=== PATIENT | male | born 1955 | race Two or more races ===

== ENCOUNTER 2021-01-31 17:24 | Inpatient (IN) | payer MEDICARE ==
[2021-01-31] MEDS ORDERED: HEPARIN SODIUM 1,000 UN/ML (10ML VL) IV ONE (17:39)
[2021-01-31] MEDS ORDERED: ATORVASTATIN 80 MG TAB PO STA (17:39)
[2021-01-31] MEDS ORDERED: ASPIRIN 81 MG PO STA (17:39)
[2021-01-31] MEDS ORDERED: NALOXONE 0.4 MG/ML 1 ML VIAL IV PRN (17:40)
--- NOTE | 2021-01-31 17:43 | ED ---
General Adult HPI - General Chief complaint: Chest Pain Stated complaint: Chest pain Time Seen by Provider: 01/31/21 17:32 Source: patient, RN notes reviewed, old records reviewed Mode of arrival: ambulatory Limitations: no limitations - History of Present Illness Initial comments: 65-year-old male history of tobacco use and diabetes presenting for evaluation of chest pain over the past 24-48 hours. Patient did have a syncopal episode yesterday. He states he was sweating had some nausea and indigestion as well as a chest pressure and pain. He has no previous history of coronary artery disease. He was previously on metformin for diabetes but is currently not taking any medication. He is a current smoker. Pain is somewhat reduced currently but still present. - Related Data Allergies Allergy/AdvReac Type Severity Reaction Status Date / Time No Known Allergies Allergy Verified 01/31/21 17:28 Review of Systems ROS Statement: Those systems with pertinent positive or pertinent negative responses have been documented in the HPI. ROS Other: All systems not noted in ROS Statement are negative. Past Medical History Past Medical History: No Reported History History of Any Multi-Drug Resistant Organisms: None Reported Past Surgical History: Orthopedic Surgery Additional Past Surgical History / Comment(s): DVT Past Psychological History: No Psychological Hx Reported Smoking Status: Current every day smoker Past Alcohol Use History: None Reported Past Drug Use History: Marijuana General Exam Limitations: no limitations General appearance: alert, in no apparent distress Head exam: Present: atraumatic, normocephalic Eye exam: Present: normal appearance, PERRL ENT exam: Present: normal exam Neck exam: Present: normal inspection. Absent: tenderness, meningismus Respiratory exam: Present: normal lung sounds bilaterally. Absent: respiratory distress, wheezes Cardiovascular Exam: Present: normal rhythm, bradycardia GI/Abdominal exam: Present: soft. Absent: distended, tenderness, guarding Extremities exam: Present: pedal edema (trace), other (Chronic venous stasis). Absent: joint swelling Neurological exam: Present: alert, oriented X3, CN II-XII intact. Absent: motor sensory deficit Psychiatric exam: Present: normal affect, normal mood Skin exam: Present: warm, intact, diaphoretic Course Vital Signs 01/31/21 17:25 Temperature 98.2 F Pulse Rate 56 L Respiratory 20 Rate Blood Pressure 129/78 O2 Sat by Pulse 96 Oximetry EKG Findings - EKG Comments: EKG Findings:: EKG: Sinus bradycardia with first-degree AV block ventricular rate of 51 MN interval prolonged to 48, QRS duration 100, QTC 433, there is ST segment elevation in II, III, and F aVF, ST segment depression in aVL as well as V2, V3, V4 Medical Decision Making - Medical Decision Making 65 yo male who had presented with chief complaint of chest pain. EKG showing ST segment elevation in the inferior leads with reciprocal change. The laborer pipelines is activated I discussed case with Dr. Petros duarte for cardiology. The patient will be taken urgently for heart catheterization. He had been given aspirin L ipitor and heparin in the emergency department. Case discussed with Dr. Muniz who will admit. All laboratory testing and imaging is pending. Disposition Clinical Impression: ST elevation myocardial infarction (STEMI) Disposition: ADMITTED IP TO THIS HOSP Condition: Serious Is patient prescribed a controlled substance at d/c from ED?: No Referrals: Arnie Burks MD [Primary Care Provider] - 1-2 days Decision to Admit Reason: Admit from EC Decision Date: 01/31/21 Decision Time: 17:45
[2021-01-31 18:02] LABS: Basophils # (A) 0.1 k/uL (0-0.2); Basophils % (A) 1 %; Eosinophils # (A) 0.4 k/uL (0-0.7); Eosinophils % (A) 2 %; HCT 47.8 % (39.0-53.0); HGB 15.9 gm/dL (13.0-17.5); Lymphocytes # (A) 1.9 k/uL (1.0-4.8); Lymphocytes % (A) 11 %; MCHC 33.3 g/dL (31.0-37.0); MCV 93.1 fL (80.0-100.0); Mean Platelet Volume 8.4; Monocytes % (A) 6 %; Neutrophils # (A) 13.4 k/uL (1.3-7.7); Neutrophils % (A) 79 %; Platelet Count 173 k/uL (150-450); RBC 5.14 m/uL (4.30-5.90); RDW 14.8 % (11.5-15.5)
[2021-01-31] MEDS ORDERED: VERAPAMIL 2.5 MG/ML 2 ML AMP ONE (18:04)
[2021-01-31] MEDS ORDERED: HEPARIN SODIUM 1,000 UN/ML (10ML VL) ONE (18:04)
[2021-01-31] MEDS ORDERED: LIDOCAINE 1% INJ 10MG/ML (20 ML MDV) ONE (18:04)
[2021-01-31] MEDS ORDERED: fentaNYL (PF) 50 MCG/ML 2 ML AMP ONE (18:05)
[2021-01-31 18:12] LABS: Albumin 4.7 g/dL (3.5-5.0); Calcium 10.2 mg/dL (8.4-10.2); INR 1.1 (<1.2); Magnesium 2.2 mg/dL (1.6-2.3); Partial Thromboplastin Time 23.5 sec (22.0-30.0); Potassium 4.5 mmol/L (3.5-5.1); Prothrombin Time 11.2 sec (9.0-12.0); Total Bilirubin 0.7 mg/dL (0.2-1.3); Total Protein 7.8 g/dL (6.3-8.2)
--- NOTE | 2021-01-31 18:12 | XR ---
EXAMINATION TYPE: XR chest 1V portable DATE OF EXAM: 01/31/2021 COMPARISON: NONE HISTORY: Chest pain TECHNIQUE: 2 views FINDINGS: Heart is normal. Lungs are clear of infiltrate. There is no heart failure. There no hilar m asses. Diaphragm is normal. There are chest leads. IMPRESSION: No active cardiopulmonary disease.
[2021-01-31] MEDS ORDERED: IV FLUID CONTINUATION 1,000 ML IV ONE (18:15)
[2021-01-31] MEDS ORDERED: fentaNYL (PF) 50 MCG/ML 2 ML AMP IVP ONE (18:16)
[2021-01-31] MEDS ORDERED: LIDOCAINE 1% INJ 10MG/ML (20 ML MDV) SQ ONE (18:19)
[2021-01-31] MEDS ORDERED: VERAPAMIL SYRINGE (5 MG/10 ML) INTRAARTER ONE (18:21)
[2021-01-31] MEDS ORDERED: TICAGRELOR 90 MG TAB ONE (18:26)
[2021-01-31] MEDS: HEPARIN SODIUM 1,000 UN/ML (10ML VL) IV ONE ×2 (18:27→19:38)
[2021-01-31] MEDS ORDERED: TICAGRELOR 90 MG TAB PO ONE (18:28)
[2021-01-31] MEDS ORDERED: ONDANSETRON 4 MG/2 ML VIAL ONE (18:51)
[2021-01-31] MEDS ORDERED: ONDANSETRON 4 MG/2 ML VIAL IVP ONE (18:54)
[2021-01-31] MEDS ORDERED: NOREPINEPHRINE 4 MG in SODIUM CHLORIDE 0.9% 250 ML IV ONE (18:54)
[2021-01-31] MEDS ORDERED: IOPAMIDOL-370 125ML BTL INJ ONE (19:01)
[2021-01-31] MEDS: MIDAZOLAM 2 MG/2 ML VIAL IVP ONE ×2 (19:10→19:20)
[2021-01-31] MEDS ORDERED: IOPAMIDOL-370 100ML BTL INJ ONE (19:17)
[2021-01-31] MEDS ORDERED: niCARdipine 25 MG/10 ML VIAL ONE (19:24)
[2021-01-31] MEDS ORDERED: niCARdipine Syringe (1,000 mcg/10 mL) INTRACORON ONE (19:25)
[2021-01-31] MEDS ORDERED: NITROGLYCERIN SL TABS 0.4 MG TAB SUBLINGUAL PRN (19:50)
[2021-01-31] MEDS ORDERED: RX INFO: IV CONTRAST WAS GIVEN 1 EACH MISC MISCELLANE PRN (19:50)
[2021-01-31] MEDS ORDERED: MAG HYDROX/AL HYDROX/SIMETH 30 ML CUP PO PRN (19:50)
[2021-01-31] MEDS ORDERED: ZOLPIDEM 5 MG TAB PO PRN (19:50)
[2021-01-31] MEDS ORDERED: ATROPINE SULFATE 0.1 MG/ML 10ML SYRINGE IV PRN (19:50)
[2021-01-31] MEDS ORDERED: SODIUM CHLORIDE 0.9% 1,000 ML IV SCH (20:00)
[2021-01-31 20:09] LABS: Glucose,Whole Blood 288 mg/dL (75-99)
[2021-01-31] MEDS: TICAGRELOR 90 MG TAB PO SCH (21:39)
[2021-01-31] MEDS: ATORVASTATIN 80 MG TAB PO SCH (21:39)
--- NOTE | 2021-01-31 22:42 | CONS ---
CONSULTATION ATTENDING: Dr. Arnie Burks. HISTORY OF PRESENT ILLNESS: Mr. Feliciano is a 65-year-old male with a history of hypertension, diabetes mellitus, history of chronic tobacco use, noncompliance with his medication visit to the physician. Yesterday, had an episode of severe chest discomfort, subsequently had a syncopal episode and had diaphoresis. Today when he had a ride, he came into the hospital. In the emergency room, he was noted to have ST-segment elevation inferiorly with QS pattern and ST-segment depression in V2 and V3 and 1 and aVL. The patient has no prior cardiac history. He denies any prior history of myocardial infarction, angina pectoris or congestive heart failure. He denies any history of peripheral edema. No history of PND or orthopnea. He has a history of smoking cigars as well as alcohol intake once a week. He is medicated and he is not taking anything at this time. He ran out of his metformin. REVIEW OF SYSTEMS: RESPIRATORY: He had dyspnea on exertion. No recent wheezing or cough. GI system: No recent GI bleeding. No peptic ulcer disease. system: No dysuria or hematuria. Nervous system: No stroke or seizure. PHYSICAL EXAMINATION: The patient was examined in the cardiac catheterization laboratory. Heart rate in the 60s. Blood pressure 128/74. HEAD: Normocephalic. Eyes sclerae anicteric. NECK: Good upstroke. No bruit. LUNGS: Clear to auscultation anteriorly. HEART: Regular rate and rhythm S1, S2. No S3. No rub or gallop appreciated. ABDOMEN: Soft, obese, nontender. Positive bowel sounds. No organomegaly. EXTREMITIES: Trace edema with chronic discoloration in venous insufficiency. EKG revealed evidence of acute inferior myocardial infarction with QRS pattern suggestive that the event occurred probably yesterday. IMPRESSION: 1. Acute inferior myocardial infarction. 2. Syncope could be related to ventricular tachycardia. 3. Chronic tobacco use. 4. History of hypertension. 5. History of diabetes mellitus. RECOMMENDATIONS: I recommend proceeding with emergent cardiac catheterization. The procedure as well as the risks and the complications were discussed with the patient who is in full understanding and agreement. Depending on his findings, further recommendations will be made. Thank you for this consult. We will follow with you. MMODL / IJN: [id number] /
--- NOTE | 2021-01-31 22:42 | CC ---
CARDIAC CATHETERIZATION REPORT Mr. Feliciano is a 65-year-old male with known history of chronic tobacco use, hypertension, hyperlipidemia, noncompliance who has not been taking any of his medication, who came in with chest discomfort that started 24 hours ago and associated with a syncopal episode. In the emergency room, upon his presentation, he was found to have evidence of QS pattern in the inferior wall with ST-segment elevation. The patient had persistent discomfort. In view of that, recommendation made regarding cardiac catheterization. The procedure as well as the risks and the complications were discussed with the patient who is in full understanding and agreement. Of note, that after signing the procedure, his troponin came back at 109. PROCEDURE DETAILS: Patient was brought to the casting house laborer. He was prepped and draped in the conventional fashion. He received Benadryl and fentanyl and after achieving moderate conscious sedated state, using Xylocaine anesthesia, Seldinger technique, 6-Angolan sheath was introduced in the right radial artery. Selective right and left coronary angiography was performed using 6-Angolan FR4 guiding catheter. After that, that guiding catheter was removed because of poor backup and exchanged to a 6-Angolan 0.75 AL guiding catheter. After cannulating the ostium of the right coronary artery, images were obtained that revealed a total occlusion of the right coronary artery at the ostium. Following that, a 0.014 Whisper J-wire with the help of a straight microcatheter were successful in crossing the total occlusion and positioned the microcatheter distally. The wire was exchanged through the microcatheter to a 0.014 balanced medium weight J-wire. Following that, the microcatheter was removed and a 2.5 x 12 mm Trek balloon was advanced and multiple inflations throughout the vessel were done. Images were obtained and that revealed a large amount of thrombus extending from the ostium all the way to the distal and beyond to the PDA and PLV. Subsequently an export catheter was introduced and one run was done without ability to remove any significant thrombotic material. Following that, a 3.0 x 23 mm Xience Kassandra stent was deployed in the mid segment at 16 atmospheres and proximal to 3.5 x 38 mm Xience Kassandra stent was deployed. It was dilated at 16 atmospheres and proximally 3.5 x 18 mm Xience Kassandra stent was deployed and was dilated at 16 atmospheres. After removing that, a thrombectomy catheter was advanced and 2 runs were performed without ability to remove significant thrombus. There was evidence of no reflow throughout the vessel. Then 3.0 x 20 mm Trek balloon was advanced and multiple inflations throughout the vessel were done and there was still no reflow into the vessel. At that time, because of the inability to restore flow, the wire was removed and the guiding catheter removed. Subsequently, a 5- Angolan 3.5 bend left Vanita catheter was introduced and images of the left coronary system were obtained. Following that, catheter and sheath were removed. Hemostasis was obtained with deployment of a TR band. The patient was returned to his room in stable condition. He was complaining predominantly of back pain. He had episode of 2:1 conduction. He was on a low dose of norepinephrine. He received a total of 6000 units of intravenous heparin. His ACT was followed. He received loading dose of Brilinta as well as intra-arterial verapamil. He has also received intracoronary nicardipine. RESULTS: FINDINGS: 1. LEFT MAIN: This is a large-sized vessel, trifurcating into left circumflex, left anterior descending artery and ramus intermedius. Left main coronary artery has no evidence of significant obstructive disease. 2. LEFT ANTERIOR DESCENDING ARTERY: This is a large-sized vessel reaching toward the apex, tapers down distally, gives rise to a 1st diagonal branch that is totally occluded. The LAD in the mid and proximal segment has mild intimal disease of 10% to 20%. 3. RAMUS INTERMEDIUS: This is a moderately-sized vessel that has a 90% stenosis proximally. 4. LEFT CIRCUMFLEX: This is a nondominant vessel giving rise to a very proximal first obtuse marginal branch that has no evidence of high-grade stenosis. There is mild disease in the AV groove, left circumflex at 10-20%. 5. RIGHT CORONARY ARTERY: This vessel is totally occluded proximally. 6. COLLATERALS: There is collaterals from the left coronary system toward the right PDA and a PLV. HEMODYNAMICS: There was no gradient across the aortic valve. The left ventricle end-diastolic pressure was 20 mmHg. CONCLUSION: 1. Acutely occluded right coronary artery with inability to recanalize the vessel because of no reflow. 2. Totally occluded 1st diagonal branch and critical stenosis in the ramus intermedius. RECOMMENDATIONS: I will continue medical therapy with supportive care. Unfortunately the patient presented late in his myocardial infarction. His troponin was already above 100 suggested the lack of viability in that area. His prognosis remains guarded. I reviewed those findings with the patient. We will follow his rhythm. Duration of procedure is 89 minutes. PRIYA / YESSYN: [id number] / MTDD
[2021-02-01 05:54] LABS: Calcium 9.1 mg/dL (8.4-10.2); Potassium 5.1 mmol/L (3.5-5.1)
[2021-02-01] MEDS ORDERED: FUROSEMIDE 10 MG/ML 2 ML VIAL IV ONE (07:34)
[2021-02-01] MEDS: TICAGRELOR 90 MG TAB PO SCH ×2 (08:38→21:03)
[2021-02-01] MEDS: ASPIRIN 81 MG PO SCH (08:38)
[2021-02-01 10:37] VITALS: BMI 34.9
--- NOTE | 2021-02-01 10:57 | ECHOF ---
Referral Reason:mi MEASUREMENTS -------- HEIGHT: 180.3 cm WEIGHT: 120.2 kg BP: IVSd: 1.5 cm (0.6 - 1.1) LVIDd: 4.9 cm (3.9 - 5.3) LVPWd: 1.7 cm (0.6 - 1.1) IVSs: 1.7 cm LVIDs: 4.7 cm LVPWs: 1.3 cm MV EXCURSION: 14.837 mm (> 18.000) MV EF SLOPE: 84 mm/s (70 - 150) EPSS: 1.5 cm MV E Zoltan: 0.55 m/s MV DecT: 250 ms MV A Zoltan: 0.53 m/s MV E/A Ratio: 1.04 AV maxP.47 mmHg AV meanP.71 mmHg RAP: 5.00 mmHg RVSP: 15.28 mmHg FINDINGS -------- This was a technically difficult study with suboptimal views. The left ventricular size is normal. There is moderate concentric left ventricular hypertrophy. O verall left ventricular systolic function is severely impaired with, an EF between 20 - 25 %. The RV was not well visualized. The left atrium was not well visualized. The right atrium was not well visualized. Lumason used The aortic valve was not well visualized. The mitral valve leaflets are mildly thickened. Mild mitral regurgitation is present. The tricuspid valve appears structurally normal. Mild tricuspid regurgitation present. Right vent ricular systolic pressure is normal at < 35 mmHg. There is no pulmonic regurgitation present. The aortic root size is normal. IVC Not well visulized. There is no pericardial effusion. CONCLUSIONS -------- 1. The left ventricular size is normal. 2. There is moderate concentric left ventricular hypertrophy. 3. Overall left ventricular systolic function is severely impaired with, an EF between 20 - 25 %. 4. The mitral valve leaflets are mildly thickened. 5. Mild mitral regurgitation is present. 6. Mild tricuspid regurgitation present. 7. There is no pericardial effusion. HOT TOP LINER: Erin Garrett [facility]
--- NOTE | 2021-02-01 12:42 | P.HPIM ---
History of Present Illness H&P Date: 02/01/21 Chief Complaint: Chest pain HISTORY OF PRESENT ILLNESS This is a 65-year-old male patient of Dr. Arnie Burks with past medical history of hypertension, hyperlipidemia, peripheral vascular disease status post left lower extremity bypass, obstructive sleep apnea status post uvula surgery, diabetes mellitus type II not currently on medication as he stopped taking metformin on his own, active tobacco use. Patient states that he developed chest pain that he thought was acid reflux and he took some medication that did not seem to help. He is up having an episode where he passed out at home and his girlfriend drove him into the hospital for further evaluation. Upon arrival, patient was found to have ST segment elevation in the inferior leads and was taken urgently to the outside laborer. He was found to have an acutely occluded right coronary artery with inability to recanalize the vessel because of no reflow. Totally occluded first diagonal branch and critical stenosis in the ramus intermedius. Recommendations were for medical therapy. Troponins were 109, 79, 63 and 61.2. Initial creatinine 1.59 and repeat of 1.38. AST 425, ALT 122. WBC 17.0. Echocardiogram reveals EF of 20-25%, moderate concentric left ventricular hypertrophy, mild mitral regurgitation, mild tricuspid regurgitation. Patient is seen today in the intensive care unit and he denies having chest pain at the time of evaluation. REVIEW OF SYSTEMS Constitutional: No fever, no chills, no night sweats. No weight change. No weakness, fatigue or lethargy. No daytime sleepiness. EENT: No headache. No blurred vision or double vision, no loss of vision. No loss of Hearing, no ringing in the ears, no dizziness. No nasal drainage or congestion. No epistaxis. No sore throat. Lungs: No shortness of breath, cough, no sputum production. No wheezing. Cardiovascular: Reported chest pain resolved, no lower extremity edema. No palpitations. No paroxysmal nocturnal dyspnea. No orthopnea. No lightheadedness or dizziness. No syncopal episodes. Abdominal: No abdominal pain. No nausea, vomiting. No diarrhea. No constipation. No bloody or tarry stools.. No loss of appetite. Genitourinary: No dysuria, increased frequency, urgency. No urinary retention. Musculoskeletal: No myalgias. No muscle weakness, no gait dysfunction, no frequent falls. No back pain. No neck pain. Integumentary: No wounds, no lesions. No rash or pruritus. No unusual bruising. No change in hair or nails. Neurologic: No aphasia. No facial droop. No change in mentation. No head injury. No headache. No paralysis. No paresthesia. Psychiatric: No depression. No anxiety. No mood swings. Endocrine: Noted abnormal blood sugars. No weight change. No excessive sweating or thirst. No cold intolerance. SOCIAL HISTORY Patient is a smoker of 5 cigars per day for more than 40 years. He drinks 2-3 alcoholic beverages one time per week. He uses marijuana occasionally. He does not utilize nebulizer, CPAP, oxygen, walker, cane. He has been retired from [employer] since 1983. FAMILY HISTORY Father at age 71 from prostate cancer. Mother at age 90 from diabetes complications. Patient does not have any brothers. He has 2 sisters living with no major medical problems. Patient has 2 children with no major medical problems. PHYSICAL EXAMINATION Gen: This is a 65-year-old obese male. He is resting in the ICU, and recliner and appears to be comfortable. No acute distress noted. HEENT: Head is atraumatic, normocephalic. Pupils equal, round. Sclerae is anicteric. NECK: Supple. No JVD. No lymphadenopathy. No thyromegaly. LUNGS: Clear to auscultation. No wheezes or rhonchi. No intercostal retractions. HEART: Regular rate and rhythm. No murmur. ABDOMEN: Soft. Bowel sounds are present. No masses. No tenderness. EXTREMITIES: Trace bilateral pedal edema. No calf tenderness. NEUROLOGICAL: Patient is awake, alert and oriented x3. Cranial nerves 2 through 12 are grossly intact. ASSESSMENT AND PLAN 1. Acute inferior wall myocardial infarction. Patient is status post heart catheterization. Plan is for medical management, continue aspirin 81 mg daily, Lipitor 80 mg at bedtime, Brilinta 90 mg oral twice daily. 2. Syncope prior to arrival. Possibly related to ventricular tachycardia. 3. Hypertension. 4. Hyperlipidemia. Continue atorvastatin 80 mg at bedtime. 5. Diabetes mellitus type 2 noncompliant. NovoLog scale before meals and at bedtime, hemoglobin A1c. 6. Peripheral vascular disease status post bypass past left lower extremity. 7. Tobacco use and dependence. Patient will be admitted to the hospital for a minimum of 2 night stay. DISCHARGE PLAN Home. Impression and plan of care have been directed as dictated by the signing physician. Rachell Lao nurse practitioner acting as scribe for signing physician. Past Medical History Past Medical History: No Reported History, Diabetes Mellitus, Osteoarthritis (OA) History of Any Multi-Drug Resistant Organisms: None Reported Past Surgical History: Orthopedic Surgery Additional Past Surgical History / Comment(s): DVT Past Anesthesia/Blood Transfusion Reactions: No Reported Reaction Past Psychological History: No Psychological Hx Reported Smoking Status: Former smoker Past Alcohol Use History: Occasional Past Drug Use History: Marijuana - Past Family History Mother Additional Family Medical History / Comment(s): states "mom lived to 90" Father Family Medical History: Cancer Additional Family Medical History / Comment(s): states "father of prostate cancer" Medications and Allergies Home Medications Medication Instructions Recorded Confirmed Type Ticagrelor [Brilinta] 90 mg PO BID 30 Days #60 tab 02/01/21 Rx Allergies Allergy/AdvReac Type Severity Reaction Status Date / Time No Known Allergies Allergy Verified 01/31/21 17:49 Physical Exam Vitals: Vital Signs Temp Pulse Pulse Resp BP Pulse Ox 02/01/21 09:00 49 L 16 114/83 96 02/01/21 08:30 47 L 18 96 02/01/21 08:00 48 L 11 L 112/81 97 02/01/21 07:30 49 L 14 96 02/01/21 07:00 48 L 21 113/76 96 02/01/21 06:30 49 L 10 L 113/76 96 02/01/21 06:00 49 L 18 117/81 94 L 02/01/21 05:30 48 L 18 117/81 96 02/01/21 05:00 46 L 28 H 134/81 85 L 02/01/21 04:30 47 L 17 134/81 97 02/01/21 04:00 97.8 F 47 L 14 139/87 96 02/01/21 03:30 46 L 12 139/87 97 02/01/21 03:00 46 L 23 123/82 97 02/01/21 02:30 46 L 12 123/82 96 02/01/21 02:00 45 L 23 127/93 95 02/01/21 01:30 44 L 14 127/93 97 02/01/21 01:00 43 L 10 L 119/74 95 02/01/21 00:30 43 L 13 119/74 88 L 02/01/21 00:00 97.2 F L 43 L 10 L 123/98 96 01/31/21 23:57 44 L 13 123/98 95 01/31/21 23:30 44 L 14 137/85 96 01/31/21 23:00 42 L 12 127/85 96 01/31/21 22:30 42 L 22 127/78 96 01/31/21 22:00 42 L 28 H 132/79 95 01/31/21 21:30 40 L 17 132/76 94 L 01/31/21 21:00 40 L 19 120/79 93 L 01/31/21 20:50 40 L 31 H 120/79 94 L 01/31/21 20:40 40 L 10 L 120/79 96 01/31/21 20:30 98.0 F 38 L 20 115/68 92 L 01/31/21 20:20 38 L 14 115/68 93 L 01/31/21 20:10 38 L 24 94/57 90 L 01/31/21 20:06 38 L 16 01/31/21 17:53 57 L 01/31/21 17:48 50 L 16 123/81 96 01/31/21 17:25 98.2 F 56 L 20 129/78 96 Intake and Output 01/31/21 02/01/21 02/01/21 22:59 06:59 14:59 Intake Total 575 800 40 Output Total 175 750 100 Balance 400 50 -60 Intake: IV 575 600 40 Sodium Chloride 0.9% 1, 225 600 40 000 ml @ 75 mls/hr IV . [id number] [facility] Rx#:[id number] Oral 200 Output: Urine 175 750 100 Other: Voiding Method Urinal Urinal # Voids 1 1 0 Weight 120.3 kg 120.3 kg Results CBC & Chem 7: 01/31/21 17:50 02/01/21 04:16 Labs: Abnormal Lab Results - Last 24 Hours (Table) 01/31/21 01/31/21 01/31/21 Range/Units 17:50 17:50 17:50 WBC 17.0 H (3.8-10.6) k/uL Neutrophils # 13.4 H (1.3-7.7) k/uL Sodium (137-145) mmol/L Chloride 97 L (98-107) mmol/L BUN 35 H (9-20) mg/dL Creatinine 1.59 H (0.66-1.25) mg/dL Glucose 273 H (74-99) mg/dL POC Glucose (mg/dL) (75-99) mg/dL AST 425 H (17-59) U/L ALT 122 H (4-49) U/L Troponin I 109.000 H* (0.000-0.034) ng/mL 01/31/21 01/31/21 02/01/21 Range/Units 20:07 21:08 00:27 WBC (3.8-10.6) k/uL Neutrophils # (1.3-7.7) k/uL Sodium (137-145) mmol/L Chloride (98-107) mmol/L BUN (9-20) mg/dL Creatinine (0.66-1.25) mg/dL Glucose (74-99) mg/dL POC Glucose (mg/dL) 288 H (75-99) mg/dL AST (17-59) U/L ALT (4-49) U/L Troponin I 79.100 H* 63.900 H* (0.000-0.034) ng/mL 02/01/21 02/01/21 Range/Units 04:16 04:16 WBC (3.8-10.6) k/uL Neutrophils # (1.3-7.7) k/uL Sodium 134 L (137-145) mmol/L Chloride (98-107) mmol/L BUN 34 H (9-20) mg/dL Creatinine 1.38 H (0.66-1.25) mg/dL Glucose 287 H (74-99) mg/dL POC Glucose (mg/dL) (75-99) mg/dL AST (17-59) U/L ALT (4-49) U/L Troponin I 61.200 H* (0.000-0.034) ng/mL Thrombosis Risk Factor Assmnt - Choose All That Apply Any of the Below Risk Factors Present?: Yes Each Factor Represents 1 point: Acute IA, Medical pt on bed rest, Obesity (BMI >25), Varicose veins Other Risk Factors: Yes Each Risk Factor Represents 2 Points: Age 61-74 years Each Risk Factor Represents 3 Points: History of DVT/PE Thrombosis Risk Factor Assessment Total Risk Factor Score: 9 Thrombosis Risk Factor Assessment Level: High Risk
[2021-02-01 12:56] LABS: Chol/HDL Ratio 7.68; LDL Cholesterol,Calculated 137.2 mg/dL (0.0-131.0); VLDL Calculation 29.8 mg/dL (5.00-40.00)
[2021-02-01 14:13] LABS: Hemoglobin A1C 9.5 % (4.0-6.0)
--- NOTE | 2021-02-01 14:38 | P.PN ---
Subjective This is a 65-year-old male with a history of hypertension, type 2 diabetes, chronic tobacco dependence, noncompliance with medication. 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 Patient presented to the emergency department 65 with chest discomfort. EKG revealed ST segment elevation inferiorly with QS pattern and ST segment depression in V2 and V3 and I and aVL. Patient underwent cardiac catheterization with Dr. Morrell which revealed acutely occluded RCA with inability recanalize because of no reflow. Totally occluded first diagonal branch and critical stenosis in the ramus intermedius. It was recommended to continue medical therapy. Unfortunately the patient presented late in his [place]. His troponin was 109 and down trended to 61. Patient seen and examined at bedside, no acute distress. Sitting up at the edge of the bed. Telemetry reviewed and reveals third degree AV block. Continues to have some chest pain, also some mild shortness of breath. BP 130/80, heart rate 49, afebrile, maintaining oxygen saturation is 95% on room air. Laboratory data reviewed, sodium 134, potassium 51, serum creatinine 1.3, BUN 34, triglycerides 1.9, cholesterol 92, LDL 137, HDL 25. He is maintained on aspirin, statin, IV Lasix 20mg x 1, Brilinta 90mg BID. GENERAL: In no acute distress. NECK: Supple without JVD or thyromegaly. LUNGS: Breath sounds clear to auscultation bilaterally. Respiration equal and unlabored. No wheezes, rales or rhonchi. HEART: Regular rate and rhythm without murmurs, rubs or gallops. S1 and S2 heard. EXTREMITIES: Normal range of motion, no edema. Chronic discoloration bilateral lower extremities. No clubbing or cyanosis. Peripheral pulses intact. ASSESSMENT STEMI Type 2 Diabetes Hypertension Chronic nicotine dependence PLAN -Echocardiogram ordered -Continue aspirin 81mg daily, Brilinta, atorvastatin 80mg -Continue cardiac telemetry -Further recommendations to follow Nurse Practitioner note has been reviewed, I agree with a documented findings and plan of care. Patient was seen and examined. Objective - Vital Signs Vital signs: Vital Signs Temp 97.8 F 02/01/21 04:00 Pulse 49 L 02/01/21 11:00 Resp 15 02/01/21 11:00 BP 134/80 02/01/21 11:00 Pulse Ox 95 02/01/21 11:00 Intake & Output 01/31/21 02/01/2102/01/21 18:59 06:59 18:59 Intake Total 330 1045 40 Output Total 925 450 Balance 330 120 -410 Weight 120.3 kg 120.3 kg 120.3 kg Intake: IV 330 845 40 Sodium Chloride 0.9% 1, 825 40 000 ml @ 75 mls/hr IV . [id number] [facility] Rx#:[id number] Oral 200 Output: Urine 925 450 Other: Voiding Method Urinal Urinal # Voids 1 0 - Labs CBC & Chem 7: 01/31/21 17:50 02/01/21 04:16 Labs: Abnormal Lab Results - Last 24 Hours (Table) 01/31/21 01/31/21 01/31/21 Range/Units 17:50 17:50 17:50 WBC 17.0 H (3.8-10.6) k/uL Neutrophils # 13.4 H (1.3-7.7) k/uL Sodium (137-145) mmol/L Chloride 97 L (98-107) mmol/L BUN 35 H (9-20) mg/dL Creatinine 1.59 H (0.66-1.25) mg/dL Glucose 273 H (74-99) mg/dL POC Glucose (mg/dL) (75-99) mg/dL Hemoglobin A1c (4.0-6.0) % AST 425 H (17-59) U/L ALT 122 H (4-49) U/L Troponin I 109.000 H* (0.000-0.034) ng/mL LDL Cholesterol, Calc (0.0-131.0) mg/dL HDL Cholesterol (40.0-60.0) mg/dL 01/31/21 01/31/21 01/31/21 Range/Units 20:07 21:08 21:08 WBC (3.8-10.6) k/uL Neutrophils # (1.3-7.7) k/uL Sodium (137-145) mmol/L Chloride (98-107) mmol/L BUN (9-20) mg/dL Creatinine (0.66-1.25) mg/dL Glucose (74-99) mg/dL POC Glucose (mg/dL) 288 H (75-99) mg/dL Hemoglobin A1c (4.0-6.0) % AST (17-59) U/L ALT (4-49) U/L Troponin I 79.100 H* (0.000-0.034) ng/mL LDL Cholesterol, Calc 137.2 H (0.0-131.0) mg/dL HDL Cholesterol 25.0 L (40.0-60.0) mg/dL 01/31/21 02/01/21 02/01/21 Range/Units 21:08 00:27 04:16 WBC (3.8-10.6) k/uL Neutrophils # (1.3-7.7) k/uL Sodium (137-145) mmol/L Chloride (98-107) mmol/L BUN (9-20) mg/dL Creatinine (0.66-1.25) mg/dL Glucose (74-99) mg/dL POC Glucose (mg/dL) (75-99) mg/dL Hemoglobin A1c 9.5 H (4.0-6.0) % AST (17-59) U/L ALT (4-49) U/L Troponin I 63.900 H* 61.200 H* (0.000-0.034) ng/mL LDL Cholesterol, Calc (0.0-131.0) mg/dL HDL Cholesterol (40.0-60.0) mg/dL 02/01/21 Range/Units 04:16 WBC (3.8-10.6) k/uL Neutrophils # (1.3-7.7) k/uL Sodium 134 L (137-145) mmol/L Chloride (98-107) mmol/L BUN 34 H (9-20) mg/dL Creatinine 1.38 H (0.66-1.25) mg/dL Glucose 287 H (74-99) mg/dL POC Glucose (mg/dL) (75-99) mg/dL Hemoglobin A1c (4.0-6.0) % AST (17-59) U/L ALT (4-49) U/L Troponin I (0.000-0.034) ng/mL LDL Cholesterol, Calc (0.0-131.0) mg/dL HDL Cholesterol (40.0-60.0) mg/dL
[2021-02-01] MEDS ORDERED: FUROSEMIDE 10 MG/ML 2 ML VIAL IV STA (15:10)
[2021-02-01] MEDS: INSULIN ASPART (NovoLOG) 100 UNIT/ML VIAL SQ SCH ×3 (16:07→21:03)
[2021-02-01 18:20] LABS: Glucose,Whole Blood 365 mg/dL (75-99)
[2021-02-01 20:49] LABS: Glucose,Whole Blood 298 mg/dL (75-99)
[2021-02-01] MEDS: ATORVASTATIN 80 MG TAB PO SCH (21:02)
[2021-02-02 04:41] LABS: Calcium 9.1 mg/dL (8.4-10.2)
[2021-02-02 04:45] LABS: Potassium 5.9 mmol/L (3.5-5.1)
[2021-02-02 06:23] LABS: Glucose,Whole Blood 194 mg/dL (75-99)
[2021-02-02] MEDS ORDERED: EPINEPHrine 10 ML SYRINGE (0.1 MG/ML) ONE (06:23)
[2021-02-02] MEDS ORDERED: EPINEPHrine 10 ML SYRINGE (0.1 MG/ML) IV STA (06:25)
[2021-02-02] MEDS ORDERED: MAGNESIUM SULFATE-D5W PMX 1 GM in DEXTROSE/WATER 1 100ML.BAG IVPB ONE (06:30)
[2021-02-02] MEDS: DOPamine DRIP 800 MG in WATER FOR INJECTION 1 250ML.BAG IV SCH (06:34)
[2021-02-02] MEDS ORDERED: SODIUM BICARB 8.4% 50 ML SYR (1 MEQ/ML) IV STA (06:44)
[2021-02-02] MEDS: INSULIN ASPART (NovoLOG) 100 UNIT/ML VIAL SQ SCH ×6 (07:00→20:45)
[2021-02-02 08:53] LABS: HCT 44.3 % (39.0-53.0); HGB 14.6 gm/dL (13.0-17.5); MCH 31.2 pg (25.0-35.0); MCV 94.5 fL (80.0-100.0); Mean Platelet Volume 8.7; Platelet Count 165 k/uL (150-450); RBC 4.69 m/uL (4.30-5.90); RDW 14.9 % (11.5-15.5); WBC 20.5 k/uL (3.8-10.6)
[2021-02-02] MEDS: FUROSEMIDE 10 MG/ML 4 ML VIAL IV SCH ×2 (08:57→20:45)
[2021-02-02] MEDS ORDERED: FUROSEMIDE 10 MG/ML 4 ML VIAL IV SCH (09:00)
[2021-02-02 09:08] LABS: Calcium 9.1 mg/dL (8.4-10.2); Magnesium 2.4 mg/dL (1.6-2.3)
[2021-02-02] MEDS: ASPIRIN 81 MG PO SCH (09:10)
[2021-02-02] MEDS: TICAGRELOR 90 MG TAB PO SCH ×2 (09:10→20:46)
[2021-02-02] MEDS: LOSARTAN 25 MG TAB PO SCH (09:11)
[2021-02-02 09:19] LABS: Potassium 4.6 mmol/L (3.5-5.1)
[2021-02-02] MEDS ORDERED: LIDOCAINE 1% INJ 10MG/ML (20 ML MDV) ONE (10:25)
[2021-02-02] MEDS ORDERED: IV FLUID CONTINUATION 1,000 ML IV ONE (10:26)
[2021-02-02] MEDS ORDERED: MIDAZOLAM 2 MG/2 ML VIAL IVP ONE (10:53)
[2021-02-02] MEDS ORDERED: LIDOCAINE 1% INJ 10MG/ML (20 ML MDV) SQ ONE (10:53)
--- NOTE | 2021-02-02 11:29 | P.PN ---
Subjective This is a 65-year-old male with a history of hypertension, type 2 diabetes, chronic tobacco dependence, noncompliance with medication. 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 Patient presented to the emergency department 65 with chest discomfort. EKG revealed ST segment elevation inferiorly with QS pattern and ST segment depression in V2 and V3 and I and aVL. Patient underwent cardiac catheterization with Dr. Morrell which revealed acutely occluded RCA with inability recanalize because of no reflow. Totally occluded first diagonal branch and critical stenosis in the ramus intermedius. It was recommended to continue medical therapy. Unfortunately the patient presented late in his [place]. His troponin was 109 and down trended to 61. Patient's course complicated by Third degree AV block and congestive heart failure. Echocardiogram revealed EF 20-25%, moderate concentric ventricular hypertrophy, mild mitral regurgitation, mild tricuspid regurgitation. 02/02/2021: This morning around 6:10am, patient had two episodes of 17 second pauses on the deburr operator. Patient was exertnally paced at 0621 at 60bpm. Patient was given 0.1mg Epi and started dopamine drip at 5mcg. After Epi administration patient had short run of torsades and 1gm of magnesium was started. At 0630, patient was back in his own rhythm in third degree AV block in the 50s. Potassium did come back at 5.9, but hemolyzed. Patient received Patient seen and examined at bedside this morning. Patient does feel warm. He denies chest pain. Continues to be short of breath. BP 136/77, heart rate 60 afebrile, maintaining oxygen saturation is 97% on 2L nasal cannula. Laboratory data reviewed, sodium 134, potassium 4.6, BUN 37, serum creatinine 1.26, magnesium 2.4, WBC 20.5, hemoglobin 14.6, platelets 165 He is maintained on aspirin, statin, IV Lasix 40mg daily, Brilinta 90mg BID. GENERAL: Sitting up in bed. States he is short of breath NECK: Supple without JVD or thyromegaly. LUNGS: Breath sounds clear to auscultation bilaterally. Respiration equal and unlabored. No wheezes, rales or rhonchi. HEART: Regular. S1 and S2 heard. EXTREMITIES: Normal range of motion, no edema. 2+ edema. Chronic discoloration bilateral lower extremities. No clubbing or cyanosis. Peripheral pulses intact. ASSESSMENT STEMI Third Degree AV Block Acute systolic heart failure with reduced ejection fraction EF 20-25% Type 2 Diabetes Hypertension Chronic nicotine dependence PLAN -Plan for temporary transvenous pacemaker today with Dr. Escamilla -Increase IV Lasix to 40mg BID -Losartan 25mg daily -Continue aspirin 81mg daily, Brilinta, atorvastatin 80mg -Continue cardiac telemetry -Further recommendations to follow Nurse Practitioner note has been reviewed, I agree with a documented findings and plan of care. Patient was seen and examined. Objective - Vital Signs Vital signs: Vital Signs Temp 97.8 F 02/02/21 04:00 Pulse 60 02/02/21 08:00 Resp 16 02/02/21 08:00 BP 136/77 02/02/21 08:00 Pulse Ox 97 02/02/21 08:00 Intake & Output 02/01/21 02/02/21 02/02/21 18:59 06:59 18:59 Intake Total 40 100 Output Total 1500 550 0 Balance -1460 -450 0 Weight 120.3 kg 116.4 kg Intake: IV 40 Sodium Chloride 0.9% 1, 40 000 ml @ 75 mls/hr IV . [id number] [facility] Rx#:[id number] Oral 100 Output: Urine 1500 550 0 Other: Voiding Method Urinal Urinal Urinal # Voids 1 - Labs CBC & Chem 7: 02/02/21 08:06 02/02/21 08:06 Labs: Abnormal Lab Results - Last 24 Hours (Table) 01/31/21 01/31/21 02/01/21 Range/Units 21:08 21:08 18:17 WBC (3.8-10.6) k/uL Sodium (137-145) mmol/L Potassium (3.5-5.1) mmol/L Chloride (98-107) mmol/L Carbon Dioxide (22-30) mmol/L BUN (9-20) mg/dL Creatinine (0.66-1.25) mg/dL Glucose (74-99) mg/dL POC Glucose (mg/dL) 365 H (75-99) mg/dL Hemoglobin A1c 9.5 H (4.0-6.0) % Magnesium (1.6-2.3) mg/dL LDL Cholesterol, Calc 137.2 H (0.0-131.0) mg/dL HDL Cholesterol 25.0 L (40.0-60.0) mg/dL 02/01/21 02/02/21 02/02/21 Range/Units 20:47 04:02 06:21 WBC (3.8-10.6) k/uL Sodium 130 L (137-145) mmol/L Potassium 5.9 H (3.5-5.1) mmol/L Chloride 97 L (98-107) mmol/L Carbon Dioxide (22-30) mmol/L BUN 38 H (9-20) mg/dL Creatinine (0.66-1.25) mg/dL Glucose 133 H (74-99) mg/dL POC Glucose (mg/dL) 298 H 194 H (75-99) mg/dL Hemoglobin A1c (4.0-6.0) % Magnesium (1.6-2.3) mg/dL LDL Cholesterol, Calc (0.0-131.0) mg/dL HDL Cholesterol (40.0-60.0) mg/dL 02/02/21 02/02/21 Range/Units 08:06 08:06 WBC 20.5 H (3.8-10.6) k/uL Sodium 134 L (137-145) mmol/L Potassium (3.5-5.1) mmol/L Chloride (98-107) mmol/L Carbon Dioxide 20 L (22-30) mmol/L BUN 37 H (9-20) mg/dL Creatinine 1.26 H (0.66-1.25) mg/dL Glucose 198 H (74-99) mg/dL POC Glucose (mg/dL) (75-99) mg/dL Hemoglobin A1c (4.0-6.0) % Magnesium 2.4 H (1.6-2.3) mg/dL LDL Cholesterol, Calc (0.0-131.0) mg/dL HDL Cholesterol (40.0-60.0) mg/dL
--- NOTE | 2021-02-02 11:36 | P.PN ---
Subjective Progress Note Date: 02/02/21 HISTORY OF PRESENT ILLNESS This is a 65-year-old male patient of Dr. Arnie Burks with past medical history of hypertension, hyperlipidemia, peripheral vascular disease status post left lower extremity bypass, obstructive sleep apnea status post uvula surgery, diabetes mellitus type II not currently on medication as he stopped taking metformin on his own, active tobacco use. Patient states that he developed chest pain that he thought was acid reflux and he took some medication that did not seem to help. He is up having an episode where he passed out at home and his girlfriend drove him into the hospital for further evaluation. Upon arrival, patient was found to have ST segment elevation in the inferior leads and was taken urgently to the slab tripper. He was found to have an acutely occluded right coronary artery with inability to recanalize the vessel because of no reflow. Totally occluded first diagonal branch and critical stenosis in the ramus intermedius. Recommendations were for medical therapy. Troponins were 109, 79, 63 and 61.2. Initial creatinine 1.59 and repeat of 1.38. AST 425, ALT 122. WBC 17.0. Echocardiogram reveals EF of 20-25%, moderate concentric left ventricular hypertrophy, mild mitral regurgitation, mild tricuspid regurgitation. Patient is seen today in the intensive care unit and he denies having chest pain at the time of evaluation. 02/02: The patient is in third-degree heart block and had a +12 seconds. He had transthoracic pacemaker applied and is undergoing temporary pacemaker and will most likely need AICD prior to discharge. Patient has been afebrile, blood pressure 136/77, pulse ox 97% on 2 L nasal cannula. WBC 20.5, hemoglobin 14.6, platelet count 165. Sodium 134, potassium 4.6, chloride 90, CO2 20, BUN 37 creatinine 1.26. Blood sugar 198. Hemoglobin A1c is 9.5. She will be started on scheduled Levemir and NovoLog scheduled with meals along with scale. Ebony boothe educator consult will be added. REVIEW OF SYSTEMS Constitutional: No fever, no chills, no night sweats. No weight change. No weakness, fatigue or lethargy. No daytime sleepiness. EENT: No headache. No blurred vision or double vision, no loss of vision. No loss of Hearing, no ringing in the ears, no dizziness. No nasal drainage or congestion. No epistaxis. No sore throat. Lungs: No shortness of breath, cough, no sputum production. No wheezing. Cardiovascular: Reported chest pain resolved, no lower extremity edema. No palpitations. No paroxysmal nocturnal dyspnea. No orthopnea. No lightheadedness or dizziness. No syncopal episodes. Abdominal: No abdominal pain. No nausea, vomiting. No diarrhea. No constipation. No bloody or tarry stools.. No loss of appetite. Genitourinary: No dysuria, increased frequency, urgency. No urinary retention. Musculoskeletal: No myalgias. No muscle weakness, no gait dysfunction, no frequent falls. No back pain. No neck pain. Integumentary: No wounds, no lesions. No rash or pruritus. No unusual bruisi ng. No change in hair or nails. Neurologic: No aphasia. No facial droop. No change in mentation. No head injury. No headache. No paralysis. No paresthesia. Psychiatric: No depression. No anxiety. No mood swings. Endocrine: Noted abnormal blood sugars. No weight change. No excessive sweating or thirst. No cold intolerance. PHYSICAL EXAMINATION Gen: This is a 65-year-old obese male. He is resting in the ICU, and recliner and appears to be comfortable. No acute distress noted. HEENT: Head is atraumatic, normocephalic. Pupils equal, round. Sclerae is anicteric. NECK: Supple. No JVD. No lymphadenopathy. No thyromegaly. LUNGS: Clear to auscultation. No wheezes or rhonchi. No intercostal retractions. HEART: Regular rate and rhythm. No murmur. ABDOMEN: Soft. Bowel sounds are present. No masses. No tenderness. EXTREMITIES: Trace bilateral pedal edema. No calf tenderness. NEUROLOGICAL: Patient is awake, alert and oriented x3. Cranial nerves 2 through 12 are grossly intact. ASSESSMENT AND PLAN 1. Acute inferior wall myocardial infarction. Patient is status post heart catheterization. Plan is for medical management, continue aspirin 81 mg daily, Lipitor 80 mg at bedtime, Brilinta 90 mg oral twice daily. 2. Syncope prior to arrival. Possibly related to ventricular tachycardia. 3. Severe ischemic cardiomyopathy. 4. Third-degree heart block requiring temporary pacemaker 5. Hypertension. 6. Hyperlipidemia. Continue atorvastatin 80 mg at bedtime. 7. Diabetes mellitus type 2, uncontrolled with hyperglycemia due to noncompliance. The patient on Levemir scheduled daily along with scheduled NovoLog and continue NovoLog scale before meals and at bedtime, hemoglobin A1c 9.5. clinical systems educator. 6. Peripheral vascular disease status post bypass past left lower extremity. 7. Tobacco use and dependence. DISCHARGE PLAN Home. Impression and plan of care have been directed as dictated by the signing physician. Rachell Lao nurse practitioner acting as scribe for signing physi vanita. Objective - Vital Signs Vital signs: Vital Signs Temp 97.8 F 02/02/21 04:00 Pulse 59 L 02/02/21 06:00 Resp 30 H 02/02/21 06:00 BP 115/84 02/02/21 06:00 Pulse Ox 96 02/02/21 06:00 Intake & Output 02/01/21 02/01/21 02/02/21 06:59 18:59 06:59 Intake Total 1045 40 100 Output Total 925 1500 550 Balance 120 -1460 -450 Weight 120.3 kg 120.3 kg 116.4 kg Intake: IV 845 40 Sodium Chloride 0.9% 1, 825 40 000 ml @ 75 mls/hr IV . [id number] [facility] Rx#:[id number] Oral 200 100 Output: Urine 925 1500 550 Other: Voiding Method Urinal Urinal Urinal # Voids 1 1 - Labs CBC & Chem 7: 02/02/21 08:06 02/02/21 08:06 Labs: Abnormal Lab Results - Last 24 Hours (Table) 01/31/21 01/31/21 02/01/21 Range/Units 21:08 21:08 18:17 Sodium (137-145) mmol/L Potassium (3.5-5.1) mmol/L Chloride (98-107) mmol/L BUN (9-20) mg/dL Glucose (74-99) mg/dL POC Glucose (mg/dL) 365 H (75-99) mg/dL Hemoglobin A1c 9.5 H (4.0-6.0) % LDL Cholesterol, Calc 137.2 H (0.0-131.0) mg/dL HDL Cholesterol 25.0 L (40.0-60.0) mg/dL 02/01/21 02/02/21 02/02/21 Range/Units 20:47 04:02 06:21 Sodium 130 L (137-145) mmol/L Potassium 5.9 H (3.5-5.1) mmol/L Chloride 97 L (98-107) mmol/L BUN 38 H (9-20) mg/dL Glucose 133 H (74-99) mg/dL POC Glucose (mg/dL) 298 H 194 H (75-99) mg/dL Hemoglobin A1c (4.0-6.0) % LDL Cholesterol, Calc (0.0-131.0) mg/dL HDL Cholesterol (40.0-60.0) mg/dL
[2021-02-02 11:50] LABS: Glucose,Whole Blood 223 mg/dL (75-99)
[2021-02-02 13:06] LABS: Glucose,Whole Blood 223 mg/dL (75-99)
--- NOTE | 2021-02-02 16:44 | P.PCN ---
Description of Procedure: Procedures performed: Ultrasound-guided right brachial venous access, placement of TVP Procedure performed by: Dr. Escamilla Moderate conscious sedation: Patient received moderate conscious sedation under the direct supervision of myself for 16 minutes Indication: HPI: Patient is a pleasant 65-year-old male with history of coronary artery disease. Patient presented with 24 hrs of chest pain and was found to have inferior ST elevations. He underwent PCI of RCA however with heavy thrombus burden and has residual LANDSCAPE TECHNICIAN of diagonal branch and otherwise mild disease of LAD and circumflex. He was found to have EF 20-25% and 3rd degree heart block. He had significant 17 second complete heart block requiring transcutaneous pacing. He is being evaluated for PPM/AICD however recommendation was to stabilize patient with a TVP. Procedure details: Patient was brought to the catheterization laboratory in a fasting state. [facility] consent was obtained after the risks, benefits and alternatives of the above mentioned procedures were described in detail with the patient. Patient was sterilely prepped and draped in the usual fashion. 1% lidocaine was used to anesthetize the right brachial area. A 6FR sheath was placed in the right brachial vein using ultrasound guidance and modified Seldinger technique. Next a 5 [place] transvenous pacemaker was placed through the sheath and under x-ray guidance was placed into right ventricle. Pacing thresholds were obtained and were deemed adequate. Patient was placed on a backup rate of 40 bpm. The sheath was sutured in place and the TVP was secured. Patient tolerated the procedure well. Patient was transferred back to the post catheterization holding area in stable condition.
[2021-02-02 16:59] LABS: Glucose,Whole Blood 206 mg/dL (75-99)
[2021-02-02 20:33] LABS: Glucose,Whole Blood 150 mg/dL (75-99)
[2021-02-02] MEDS: ATORVASTATIN 80 MG TAB PO SCH (20:46)
[2021-02-03] MEDS: DOPamine DRIP 800 MG in WATER FOR INJECTION 1 250ML.BAG IV SCH ×2 (03:38→18:09)
[2021-02-03 05:20] LABS: Calcium 9.1 mg/dL (8.4-10.2); Magnesium 2.3 mg/dL (1.6-2.3); Potassium 4.2 mmol/L (3.5-5.1)
[2021-02-03] MEDS: INSULIN ASPART (NovoLOG) 100 UNIT/ML VIAL SQ SCH ×7 (07:01→21:05)
[2021-02-03] MEDS: LOSARTAN 25 MG TAB PO SCH (09:01)
[2021-02-03] MEDS: FUROSEMIDE 10 MG/ML 4 ML VIAL IV SCH ×2 (09:01→21:25)
[2021-02-03] MEDS: ASPIRIN 81 MG PO SCH (09:01)
[2021-02-03] MEDS: TICAGRELOR 90 MG TAB PO SCH ×2 (09:01→21:25)
[2021-02-03] MEDS: INSULIN DETEMIR (LEVEMIR) 100 UNIT/ML SYR SQ SCH (09:23)
[2021-02-03 09:25] LABS: Glucose,Whole Blood 194 mg/dL (75-99)
[2021-02-03 11:10] LABS: Glucose,Whole Blood 200 mg/dL (75-99)
--- NOTE | 2021-02-03 11:12 | P.PN ---
Subjective This is a 65-year-old male with a history of hypertension, type 2 diabetes, chronic tobacco dependence, noncompliance with medication. 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 Patient presented to the emergency department 65 with chest discomfort. EKG revealed ST segment elevation inferiorly with QS pattern and ST segment depression in V2 and V3 and I and aVL. Patient underwent cardiac catheterization with Dr. Morrell which revealed acutely occluded RCA with inability recanalize because of no reflow. Totally occluded first diagonal branch and critical stenosis in the ramus intermedius. It was recommended to continue medical therapy. Unfortunately the patient presented late in his [place]. His troponin was 109 and down trended to 61. Patient's course complicated by Third degree AV block and congestive heart failure. Echocardiogram revealed EF 20-25%, moderate concentric ventricular hypertrophy, mild mitral regurgitation, mild tricuspid regurgitation. 02/02/2021: 6:10am, patient had two episodes of 17 second pauses on the wood grainer. Patient was externally paced at 0621 at 60bpm. Patient was given 0.1mg Epi and started dopamine drip at 5mcg. After Epi administration patient had short run of torsades and 1gm of magnesium was started. At 0630, patient was back in his own rhythm in third degree AV block in the 50s. Potassium did come back at 5.9, but hemolyzed. Patient received IV bicarb. Patient underwent TVP with Dr. Escamilla later in the day. 02/03/2021: Patient seen and examined at bedside this morning. Sitting up in bed, no acute distress. He is eating breakfast. TVP in place. Patient is needing to be paced. BP 99/62 , heart rate 47 afebrile, maintaining oxygen saturation is 976% on 2L nasal cannula. Laboratory data reviewed, sodium 133, potassium 4.2, BUN 35, serum creatinine 1.09, magnesium 2.3. He is maintained on aspirin 81mg daily , atorvastatin 80mg daily , IV Lasix 40mg BID, Brilinta 90mg BID, IV Dopamine drip at 7mcg/kg/min. Patient with 3.8L urine output over the past 24 hours. GENERAL: Sitting up in bed. Continues to feel warm with cloth on head, some mild shortness of breath. NECK: Supple without JVD LUNGS: Breath sounds diminished to auscultation bilaterally. Respiration equal and unlabored. No wheezes, rales or rhonchi. HEART: Regular. S1 and S2 heard. TVP in place : Dumont in place with dark yellow urine EXTREMITIES: 2+ edema. Chronic discoloration bilateral lower extremities. No clubbing or cyanosis. Peripheral pulses intact. ASSESSMENT STEMI Third Degree AV Block Status post TVP placement on 02/02 Acute systolic heart failure with reduced ejection fraction EF 20-25% Type 2 Diabetes Hypertension Chronic nicotine dependence PLAN -Plan for PPM/AICD placement with Dr. Jara tomorrow -Patient NPO at midnight -Continue IV Dopamine drip, IV Lasix to 40mg BID, Losartan 25mg daily -Continue aspirin 81mg daily, Brilinta, atorvastatin 80mg -Continue cardiac telemetry -Further recommendations to follow Nurse Practitioner note has been reviewed, I agree with a documented findings and plan of care. Patient was seen and examined. Objective - Vital Signs Vital signs: Vital Signs Temp 98.3 F 02/03/21 04:00 Pulse 67 02/03/21 07:00 Resp 22 02/03/21 07:00 BP 116/87 02/03/21 07:00 Pulse Ox 95 02/03/21 07:00 Intake & Output 02/02/21 02/03/21 02/03/21 18:59 06:59 18:59 Intake Total 340 770.000 Output Total 1774 2034 Balance -1435 -1265.000 Weight 118 kg Intake: IV 340 520 0.9 @ 20 180 260 TVP 0.9 140 260 Intake, IV Titration 250.000 Amount DOPamine DRIP 800 mg In 250.000 Water For Injection 1 250ml.bag @ 5 MCG/KG/MIN 11.278 mls/hr IV .[id number] [facility] Rx#:[id number] Output: Urine 1774 2034 Other: Voiding Method Indwelling Catheter Indwelling Catheter - Labs CBC & Chem 7: 02/02/21 08:06 02/03/21 04:10 Labs: Abnormal Lab Results - Last 24 Hours (Table) 02/02/21 02/02/21 02/02/21 Range/Units 11:48 13:04 16:57 Sodium (137-145) mmol/L Chloride (98-107) mmol/L BUN (9-20) mg/dL Glucose (74-99) mg/dL POC Glucose (mg/dL) 223 H 223 H 206 H (75-99) mg/dL 02/02/21 02/03/21 02/03/21 Range/Units 20:31 04:10 09:23 Sodium 133 L (137-145) mmol/L Chloride 95 L (98-107) mmol/L BUN 35 H (9-20) mg/dL Glucose 107 H (74-99) mg/dL POC Glucose (mg/dL) 150 H 194 H (75-99) mg/dL
--- NOTE | 2021-02-03 12:35 | P.PN ---
Subjective Progress Note Date: 02/03/21 HISTORY OF PRESENT ILLNESS This is a 65-year-old male patient of Dr. Arnie Burks with past medical history of hypertension, hyperlipidemia, peripheral vascular disease status post left lower extremity bypass, obstructive sleep apnea status post uvula surgery, diabetes mellitus type II not currently on medication as he stopped taking metformin on his own, active tobacco use. Patient states that he developed chest pain that he thought was acid reflux and he took some medication that did not seem to help. He is up having an episode where he passed out at home and his girlfriend drove him into the hospital for further evaluation. Upon arrival, patient was found to have ST segment elevation in the inferior leads and was taken urgently to the manager lab. He was found to have an acutely occluded right coronary artery with inability to recanalize the vessel because of no reflow. Totally occluded first diagonal branch and critical stenosis in the ramus intermedius. Recommendations were for medical therapy. Troponins were 109, 79, 63 and 61.2. Initial creatinine 1.59 and repeat of 1.38. AST 425, ALT 122. WBC 17.0. Echocardiogram reveals EF of 20-25%, moderate concentric left ventricular hypertrophy, mild mitral regurgitation, mild tricuspid regurgitation. Patient is seen today in the intensive care unit and he denies having chest pain at the time of evaluation. 02/02: The patient is in third-degree heart block and had a +12 seconds. He had transthoracic pacemaker applied and is undergoing temporary pacemaker and will most likely need AICD prior to discharge. Patient has been afebrile, blood pressure 136/77, pulse ox 97% on 2 L nasal cannula. WBC 20.5, hemoglobin 14.6, platelet count 165. Sodium 134, potassium 4.6, chloride 90, CO2 20, BUN 37 creatinine 1.26. Blood sugar 198. Hemoglobin A1c is 9.5. She will be started on scheduled Levemir and NovoLog scheduled with meals along with scale. Ebony boothe educator consult will be added. 02/03: Patient remains in intensive care unit. He had a temporary transverse venous pacemaker placed yesterday and is scheduled for AICD for tomorrow. Patient is on dopamine drip and IV Lasix. Dumont catheter is in place noted to have hematuria. Patient's significant other is at the bedside. Patient has been afebrile, heart rate in the 40s to 60, blood pressure 133/64, pulse ox 98% on room air. Sodium 133, potassium 4.2, chloride 95, CO2 28, BUN 35 creatinine 1.09. Blood sugars are running between 170s and 206. Patient was started on insulin yesterday and for gentle will be added. REVIEW OF SYSTEMS Constitutional: No fever, no chills, no night sweats. No weight change. No weakness, fatigue or lethargy. No daytime sleepiness. EENT: No headache. No blurred vision or double vision, no loss of vision. No loss of Hearing, no ringing in the ears, no dizziness. No nasal drainage or congestion. No epistaxis. No sore throat. Lungs: No shortness of breath, cough, no sputum production. No wheezing. Cardiovascular: Reported chest pain resolved, no lower extremity edema. No palpitations. No paroxysmal nocturnal dyspnea. No orthopnea. No lightheadedness or dizziness. No syncopal episodes. Abdominal: No abdominal pain. No nausea, vomiting. No diarrhea. No constipation. No bloody or tarry stools.. No loss of appetite. Genitourinary: No dysuria, increased frequency, urgency. No urinary retention. Musculoskeletal: No myalgias. No muscle weakness, no gait dysfunction, no frequ ent falls. No back pain. No neck pain. Integumentary: No wounds, no lesions. No rash or pruritus. No unusual bruising. No change in hair or nails. Neurologic: No aphasia. No facial droop. No change in mentation. No head injury. No headache. No paralysis. No paresthesia. Psychiatric: No depression. No anxiety. No mood swings. Endocrine: Noted abnormal blood sugars. No weight change. PHYSICAL EXAMINATION Gen: This is a 65-year-old obese male. He is resting in the ICU, and recliner and appears to be comfortable. No acute distress noted. HEENT: Head is atraumatic, normocephalic. Pupils equal, round. Sclerae is anicteric. NECK: Supple. No JVD. No lymphadenopathy. No thyromegaly. LUNGS: Clear to auscultation. No wheezes or rhonchi. No intercostal retrac tions. HEART: Regular rate and rhythm. No murmur. ABDOMEN: Soft. Bowel sounds are present. No masses. No tenderness. EXTREMITIES: Trace bilateral pedal edema. No calf tenderness. NEUROLOGICAL: Patient is awake, alert and oriented x3. Cranial nerves 2 through 12 are grossly intact. ASSESSMENT AND PLAN 1. Acute inferior wall myocardial infarction. Patient is status post heart catheterization. Plan is for medical management, continue aspirin 81 mg daily, Lipitor 80 mg at bedtime, Brilinta 90 mg oral twice daily. 2. Syncope prior to arrival. Possibly related to ventricular tachycardia. 3. Severe ischemic cardiomyopathy. Continue Lasix 40 mg IV push every 12 hours, dobutamine drip, AICD scheduled for tomorrow. 4. Third-degree heart block requiring temporary pacemaker 5. Hypertension. 6. Hyperlipidemia. Continue atorvastatin 80 mg at bedtime. 7. Diabetes mellitus type 2, uncontrolled with hyperglycemia due to noncompliance. Continue Levemir 12 units daily, NovoLog scale and Tradjenta 5 mg daily added, hemoglobin A1c 9.5. 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 6. Peripheral vascular disease status post bypass past left lower extremity. 7. Tobacco use and dependence. DISCHARGE PLAN Home. Impression and plan of care have been directed as dictated by the signing physician. Rachell Lao nurse practitioner acting as scribe for signing physician. Objective - Vital Signs Vital signs: Vital Signs Temp 98.1 F 02/03/21 08:00 Pulse 47 L 02/03/21 11:00 Resp 18 02/03/21 11:00 BP 99/62 02/03/21 11:00 Pulse Ox 96 02/03/21 11:00 Intake & Output 02/02/21 02/03/21 02/03/21 18:59 06:59 18:59 Intake Total 340 770.000 120 Output Total 1774 2034 Balance -1435 -1265.000 120 Weight 118 kg Intake: IV 340 520 120 0.9 @ 20 180 260 60 TVP 0.9 140 260 60 Intake, IV Titration 250.000 Amount DOPamine DRIP 800 mg In 250.000 Water For Injection 1 250ml.bag @ 5 MCG/KG/MIN 11.278 mls/hr IV .[id number] [facility] Rx#:[id number] Output: Urine 1774 2034 Other: Voiding Method Indwelling Catheter Indwelling Catheter Indwelling Catheter - Labs CBC & Chem 7: 02/02/21 08:06 02/03/21 04:10 Labs: Abnormal Lab Results - Last 24 Hours (Table) 02/02/21 02/02/21 02/02/21 Range/Units 13:04 16:57 20:31 Sodium (137-145) mmol/L Chloride (98-107) mmol/L BUN (9-20) mg/dL Glucose (74-99) mg/dL POC Glucose (mg/dL) 223 H 206 H 150 H (75-99) mg/dL 02/03/21 02/03/21 02/03/21 Range/Units 04:10 09:23 11:09 Sodium 133 L (137-145) mmol/L Chloride 95 L (98-107) mmol/L BUN 35 H (9-20) mg/dL Glucose 107 H (74-99) mg/dL POC Glucose (mg/dL) 194 H 200 H (75-99) mg/dL
[2021-02-03] MEDS: LINAGLIPTIN 5 MG TABLET PO SCH (14:12)
[2021-02-03 16:48] LABS: Glucose,Whole Blood 262 mg/dL (75-99)
[2021-02-03 21:00] LABS: Glucose,Whole Blood 245 mg/dL (75-99)
[2021-02-03] MEDS: ATORVASTATIN 80 MG TAB PO SCH (21:25)
[2021-02-04] MEDS ORDERED: SODIUM CHLORIDE 0.9% 1,000 ML IV SCH
[2021-02-04 04:54] LABS: Basophils % (A) 0 %; Eosinophils # (A) 0.2 k/uL (0-0.7); Eosinophils % (A) 1 %; HCT 45.6 % (39.0-53.0); HGB 14.6 gm/dL (13.0-17.5); Lymphocytes % (A) 6 %; MCH 30.1 pg (25.0-35.0); MCHC 32.1 g/dL (31.0-37.0); MCV 93.8 fL (80.0-100.0); Mean Platelet Volume 9.2; Monocytes # (A) 1.6 k/uL (0-1.0); Monocytes % (A) 9 %; Neutrophils # (A) 13.8 k/uL (1.3-7.7); Neutrophils % (A) 81 %; Platelet Count 191 k/uL (150-450); RBC 4.86 m/uL (4.30-5.90); WBC 17.1 k/uL (3.8-10.6)
[2021-02-04 05:11] LABS: Potassium 4.2 mmol/L (3.5-5.1)
[2021-02-04 06:52] LABS: Glucose,Whole Blood 160 mg/dL (75-99)
[2021-02-04] MEDS: INSULIN ASPART (NovoLOG) 100 UNIT/ML VIAL SQ SCH ×7 (06:54→23:11)
[2021-02-04] MEDS ORDERED: ACETAMINOPHEN TAB 500 MG TAB PO PRN (07:59)
[2021-02-04] MEDS: LOSARTAN 25 MG TAB PO SCH (08:10)
[2021-02-04] MEDS: ASPIRIN 81 MG PO SCH (08:10)
[2021-02-04] MEDS: FUROSEMIDE 10 MG/ML 4 ML VIAL IV SCH ×2 (08:10→22:00)
[2021-02-04] MEDS: TICAGRELOR 90 MG TAB PO SCH ×2 (08:10→22:00)
[2021-02-04] MEDS: LINAGLIPTIN 5 MG TABLET PO SCH (08:25)
[2021-02-04] MEDS: INSULIN DETEMIR (LEVEMIR) 100 UNIT/ML SYR SQ SCH (08:34)
[2021-02-04] MEDS ORDERED: LIDOCAINE 1% INJ 10MG/ML (20 ML MDV) ONE (10:08)
[2021-02-04] MEDS ORDERED: ceFAZolin 1,000 MG in SODIUM CHLORIDE 0.9% IRRIGATIO 250 ML IRRIGATION ONE (10:36)
[2021-02-04] MEDS ORDERED: fentaNYL (PF) 50 MCG/ML 2 ML AMP ONE (10:39)
[2021-02-04] MEDS ORDERED: MIDAZOLAM 2 MG/2 ML VIAL ONE (10:39)
[2021-02-04] MEDS ORDERED: SODIUM CHLORIDE 0.9% 250 ML IV ONE (10:41)
[2021-02-04] MEDS ORDERED: IOPAMIDOL-370 50ML BTL INJ ONE (11:06)
--- NOTE | 2021-02-04 11:31 | P.PN ---
Subjective Progress Note Date: 02/04/21 HISTORY OF PRESENT ILLNESS This is a 65-year-old male patient of Dr. Arnie Burks with past medical history of hypertension, hyperlipidemia, peripheral vascular disease status post left lower extremity bypass, obstructive sleep apnea status post uvula surgery, diabetes mellitus type II not currently on medication as he stopped taking metformin on his own, active tobacco use. Patient states that he developed chest pain that he thought was acid reflux and he took some medication that did not seem to help. He is up having an episode where he passed out at home and his girlfriend drove him into the hospital for further evaluation. Upon arrival, patient was found to have ST segment elevation in the inferior leads and was taken urgently to the solder making laborer. He was found to have an acutely occluded right coronary artery with inability to recanalize the vessel because of no reflow. Totally occluded first diagonal branch and critical stenosis in the ramus intermedius. Recommendations were for medical therapy. Troponins were 109, 79, 63 and 61.2. Initial creatinine 1.59 and repeat of 1.38. AST 425, ALT 122. WBC 17.0. Echocardiogram reveals EF of 20-25%, moderate concentric left ventricular hypertrophy, mild mitral regurgitation, mild tricuspid regurgitation. Patient is seen today in the intensive care unit and he denies having chest pain at the time of evaluation. 02/02: The patient is in third-degree heart block and had a +12 seconds. He had transthoracic pacemaker applied and is undergoing temporary pacemaker and will most likely need AICD prior to discharge. Patient has been afebrile, blood pressure 136/77, pulse ox 97% on 2 L nasal cannula. WBC 20.5, hemoglobin 14.6, platelet count 165. Sodium 134, potassium 4.6, chloride 90, CO2 20, BUN 37 creatinine 1.26. Blood sugar 198. Hemoglobin A1c is 9.5. She will be started on scheduled Levemir and NovoLog scheduled with meals along with scale. Ebony boothe educator consult will be added. 02/03: Patient remains in intensive care unit. He had a temporary transverse venous pacemaker placed yesterday and is scheduled for AICD for tomorrow. Patient is on dopamine drip and IV Lasix. Dumont catheter is in place noted to have hematuria. Patient's significant other is at the bedside. Patient has been afebrile, heart rate in the 40s to 60, blood pressure 133/64, pulse ox 98% on room air. Sodium 133, potassium 4.2, chloride 95, CO2 28, BUN 35 creatinine 1.09. Blood sugars are running between 170s and 206. Patient was started on insulin yesterday and for gentle will be added. 02/04: She remains in the intensive care unit. He has been afebrile, heart rate 60, blood pressure 128/95, pulse ox 95% on 3 L nasal cannula. Repeat blood work reveals WBC 17.1, hemoglobin 14.6, platelet count 191. Sodium 132, potassium 4 .2, chloride 96, CO2 25, BUN 34 creatinine 1.01. Blood sugars are running between 160 and 262. Transient was held this morning. Scheduled NovoLog increased for now. Patient is having AICD implantation today. REVIEW OF SYSTEMS Constitutional: No fever, no chills, no night sweats. No weight change. No weakness, fatigue or lethargy. No daytime sleepiness. EENT: No headache. No blurred vision or double vision, no loss of vision. No nasal drainage or congestion. No epistaxis. No sore throat. Lungs: No shortness of breath, cough, no sputum production. No wheezing. Cardiovascular: Reported chest pain resolved, no lower extremity edema. No palpitations. No paroxysmal nocturnal dyspnea. No orthopnea. No lightheadedness or dizziness. No syncopal episodes. Abdominal: No abdominal pain. No nausea, vomiting. No diarrhea. No constipation. No bloody or tarry stools.. No loss of appetite. Genitourinary: No dysuria, increased frequency, urgency. No urinary retention. Musculoskeletal: No myalgias. No muscle weakness, no gait dysfunction, no frequent falls. No back pain. No neck pain. Integumentary: No wounds, no lesions. No rash or pruritus. No unusual bruising. No change in hair or nails. Neurologic: No aphasia. No facial droop. No change in mentation. No head injury. No headache. No paralysis. No paresthesia. Psychiatric: No depression. No anxiety. No mood swings. Endocrine: Noted abnormal blood sugars. No weight change. PHYSICAL EXAMINATION Gen: This is a 65-year-old obese male. He is resting in the ICU, and recliner and appears to be comfortable. No acute distress noted. HEENT: Head is atraumatic, normocephalic. Pupils equal, round. Sclerae is anicteric. NECK: Supple. No JVD. No lymphadenopathy. No thyromegaly. LUNGS: Clear to auscultation. No wheezes or rhonchi. No intercostal retractions. HEART: Regular rate and rhythm. No murmur. ABDOMEN: Soft. Bowel sounds are present. No masses. No tenderness. EXTREMITIES: Trace bilateral pedal edema. No calf tenderness. NEUROLOGICAL: Patient is awake, alert and oriented x3. Cranial nerves 2 through 12 are grossly intact. ASSESSMENT AND PLAN 1. Acute inferior wall myocardial infarction. Patient is status post heart catheterization. Plan is for medical management, continue aspirin 81 mg daily, Lipitor 80 mg at bedtime, Brilinta 90 mg oral twice daily. 2. Syncope prior to arrival. Possibly related to ventricular tachycardia. 3. Severe ischemic cardiomyopathy. Continue Lasix 40 mg IV push every 12 hours , dobutamine drip, AICD implantation today. 4. Third-degree heart block requiring temporary pacemaker. AICD implantation today 5. Hypertension. 6. Hyperlipidemia. Continue atorvastatin 80 mg at bedtime. 7. Diabetes mellitus type 2, uncontrolled with hyperglycemia due to noncompliance. Continue Levemir 12 units daily, NovoLog 6 units with meals and NovoLog scale and Tradjenta 5 mg daily added, hemoglobin A1c 9.5. electrical and instrumentation mechanic consult. 6. Peripheral vascular disease status post bypass past left lower extremity. 7. Tobacco use and dependence. Smoking cessation. DISCHARGE PLAN Home. Impression and plan of care have been directed as dictated by the signing physician. Rachell Lao nurse practitioner acting as scribe for signing physician. Objective - Vital Signs Vital signs: Vital Signs Temp 98.1 F 02/04/21 08:00 Pulse 60 02/04/21 09:30 Resp 22 02/04/21 09:30 BP 128/95 02/04/21 09:30 Pulse Ox 95 02/04/21 09:30 Intake & Output 02/03/21 02/04/21 02/04/21 18:59 06:59 18:59 Intake Total 669.204 680 90 Output Total 1600 1575 410 Balance -930.796 -895 -320 Weight 120.7 kg Intake: IV 440 480 90 0.9 @ 20 220 240 20 Sodium Chloride 0.9% 1, 50 000 ml @ 50 mls/hr IV . Q20H [facility] Rx#:[id number] TVP 0.9 220 240 20 Intake, IV Titration 229.204 Amount DOPamine DRIP 800 mg In 229.204 Water For Injection 1 250ml.bag @ 5 MCG/KG/MIN 11.278 mls/hr IV .[id number] [facility] Rx#:[id number] Oral 200 Output: Urine 1600 1575 410 Other: Voiding Method Indwelling Catheter Indwelling Catheter Indwelling Catheter - Labs CBC & Chem 7: 02/04/21 04:33 02/04/21 04:33 Labs: Abnormal Lab Results - Last 24 Hours (Table) 02/03/21 02/03/21 02/04/21 Range/Units 16:46 20:59 04:33 WBC 17.1 H (3.8-10.6) k/uL Neutrophils # 13.8 H (1.3-7.7) k/uL Monocytes # 1.6 H (0-1.0) k/uL Sodium (137-145) mmol/L Chloride (98-107) mmol/L BUN (9-20) mg/dL Glucose (74-99) mg/dL POC Glucose (mg/dL) 262 H 245 H (75-99) mg/dL 02/04/21 02/04/21 Range/Units 04:33 06:51 WBC (3.8-10.6) k/uL Neutrophils # (1.3-7.7) k/uL Monocytes # (0-1.0) k/uL Sodium 132 L (137-145) mmol/L Chloride 96 L (98-107) mmol/L BUN 34 H (9-20) mg/dL Glucose 171 H (74-99) mg/dL POC Glucose (mg/dL) 160 H (75-99) mg/dL
[2021-02-04] MEDS ORDERED: LIDOCAINE 1% INJ 10MG/ML (20 ML MDV) SQ ONE (11:35)
[2021-02-04] MEDS ORDERED: ACETAMINOPHEN TAB 325 MG TAB PO PRN (13:32)
[2021-02-04] MEDS ORDERED: ACETAMINOPHEN IV (For NPO) 1,000 MG in EMPTY BAG 1 BAG IVPB ONE (13:32)
[2021-02-04] MEDS ORDERED: HYDROcodone/APAP 5-325MG 1 EACH TAB PO PRN (13:32)
--- NOTE | 2021-02-04 13:41 | P.EPPROC ---
- EP Procedure Note Electrophysiology Procedure Note: Impression Ischemic cardio myopathy Severe LV dysfunction ejection fraction less than 25% Inferior wall NM complicated by complete heart block that did not resolve This required a TVP and the patient is still dependent on pacing CAD, CHF class class 2-3 Anticipated RV pacing percentage with pacing is greater than 40% more likely 100% A biventricular ICD was implanted to provide permanent pacing, biventricular pacing to avoid RV pacing and management of sudden cardiac risk in the future, primary prevention This was discussed with the patient prior to the procedure as well as his Successful biventricular ICD implantation [employer] LV lead in the anterior vein ICD lead in the RV apex The brachial TVP was then removed at the end of procedure Plan Start carvedilol and maximize heart failure medications DFT testing after 3 months
[2021-02-04 14:33] LABS: Glucose,Whole Blood 146 mg/dL (75-99)
--- NOTE | 2021-02-04 15:06 | XR ---
EXAMINATION TYPE: XR chest 1V portable DATE OF EXAM: 02/04/2021 CLINICAL HISTORY: Pacemaker insertion. TECHNIQUE: Single AP portable upright view of the chest is obtained. COMPARISON: Chest x-ray from 4 days earlier FINDINGS: There is new multilead pacemaker/defibrillator with leads projecting over expected levels of the right atrium, right ventricle, and coronary sinus. Persistent cardiomegaly. Persistent chronic parenchymal changes without new suspicious focal airspace opacity, pleural effusion, or pneumothorax seen bilaterally. Multilevel spurring in the spine redemonstrated. IMPRESSION: As above.
[2021-02-04] MEDS: carvediloL 3.125 MG TAB PO SCH (15:16)
[2021-02-04 16:58] LABS: Glucose,Whole Blood 220 mg/dL (75-99)
--- NOTE | 2021-02-04 17:22 | P.EPPROC ---
- EP Procedure Note Electrophysiology Procedure Note: Left upper extremity venogram 10 mL IV dye injection the left arm Patent left subclavian and axillary vein Plan Proceed with biventricular ICD implant
[2021-02-04] MEDS ORDERED: carvediloL 3.125 MG TAB PO SCH (17:30)
--- NOTE | 2021-02-04 18:16 | CE ---
CARDIAC ELECTROPHYSIOLOGY REPORT Benson Feliciano is a 65-year-old male patient admitted with an inferior wall MO. However, he has chronic cardiomyopathy now with further reduction in LV systolic function, ejection fraction 20-25 percent. He has class 2-3 heart failure. He developed third-degree heart block with very long pauses. TVP was placed, but his AV node conduction did not recover. He is brought in for a Bi V ICD implantation for primary prevention of sudden cardiac given his ischemic cardiomyopathy and history of MO and heart failure status, and need for 100% pacing in the anticipated RV pacing percentage with standard pacing would have been 100%. To avoid this, a biventricular ICD was implanted. The patient was brought to the EP lab in a fasting state. Written informed consent was obtained prior to procedure. The left shoulder area was prepped and draped as per protocol. 1% lidocaine was used for local anesthesia. A 4 cm incision made parallel to the deltopectoral groove, about 1.5 cm medial to it. The incision was carried down to the level of the pectoralis muscle. A subfascial pocket was made. Hemostasis was assured. The left axillary vein was accessed. The left axillary vein was accessed at 3 separate points under fluoroscopy and via appropriately-sized introducer sheaths 3 leads were positioned. The RV lead was positioned in the RV apex. The RV was enlarged. This was a [employer] model number [id number] 65 cm in length and serial number [id number]. The patient has complete heart block (no R-waves). Pacing threshold 0.5 V at 0.5 milliseconds. Pacing impedance of 500 ohms. 10 V test negative. Next an LV lead was then placed. The coronary sinus was accessed and LV sheath was placed distally in the coronary sinus. Anterior vein was targeted. The patient had diminutive LV veins. The lateral vein was fairly short. The [employer] senior lead project manager model #1456Q, 86 cm in length and serial number [id number] was placed in the anterior vein. Pacing threshold 1 V at 0.5 milliseconds, pacing impedance of 560 ohms. 10 V test negative. The right atrial lead was a [employer] model #2088TC, 52 cm in length and serial number [id number]. P-waves 1.3 mV, pacing impedance 350 ohms, pacing threshold 1 V at 0.5 milliseconds. 10 V test negative. All 3 leads were secured to the underlying pectoralis fascia using 2 nonabsorbable sutures. Pocket was irrigated with antibiotic solution. Leads connected to the generator (Pro[employer]ible model CD HFA 500Q serial #[id number]. The lead and generator were then placed in subfascial pocket. The wound was closed in 3 layers and dressed per protocol. RESULT: Successful biventricular ICD implantation for complete heart block, severe ischemic cardiomyopathy, congestive heart failure, systolic. PLAN: Restart beta blockers and maximize. DFT testing at this time was deferred and will be performed after 3-4 months. MMODL / IJN: [id number] /
[2021-02-04] MEDS: ATORVASTATIN 80 MG TAB PO SCH (22:00)
[2021-02-04 23:06] LABS: Glucose,Whole Blood 102 mg/dL (75-99)
[2021-02-05 04:23] LABS: HCT 40.5 % (39.0-53.0); HGB 12.9 gm/dL (13.0-17.5); MCH 29.7 pg (25.0-35.0); MCHC 31.9 g/dL (31.0-37.0); Mean Platelet Volume 9.8; Platelet Count 207 k/uL (150-450); RBC 4.36 m/uL (4.30-5.90)
[2021-02-05 04:41] LABS: Calcium 8.9 mg/dL (8.4-10.2); Potassium 3.7 mmol/L (3.5-5.1)
[2021-02-05 06:50] LABS: Glucose,Whole Blood 111 mg/dL (75-99)
[2021-02-05] MEDS ORDERED: Potassium Replacement Protocol 1 EACH MISC MISCELLANE PRN (07:21)
[2021-02-05] MEDS: INSULIN DETEMIR (LEVEMIR) 100 UNIT/ML SYR SQ SCH (07:45)
[2021-02-05] MEDS: FUROSEMIDE 10 MG/ML 4 ML VIAL IV SCH (07:46)
[2021-02-05] MEDS: ASPIRIN 81 MG PO SCH (07:46)
[2021-02-05] MEDS: INSULIN ASPART (NovoLOG) 100 UNIT/ML VIAL SQ SCH ×4 (07:46→12:15)
[2021-02-05] MEDS: LINAGLIPTIN 5 MG TABLET PO SCH (07:46)
[2021-02-05] MEDS ORDERED: POTASSIUM CHLORIDE ER 20 MEQ TAB.ER PO SCH (08:00)
[2021-02-05 08:10] VITALS: TEMP 98
[2021-02-05] MEDS: TICAGRELOR 90 MG TAB PO SCH (08:30)
[2021-02-05] MEDS: carvediloL 3.125 MG TAB PO SCH (10:14)
[2021-02-05 10:15] VITALS: PULSE 91; RESP 24
--- NOTE | 2021-02-05 11:36 | PN ---
PROGRESS NOTE HISTORY: Benson is a 65-year-old gentleman who is admitted to the hospital with acute inferior wall myocardial infarction and underwent an unsuccessful angioplasty of right coronary artery. The patient also had a totally occluded diagonal branch and a critical stenosis of the ramus and subsequently developed complete heart block. He had temporary pacemaker and went on to have a Bi-V AICD. He is ready to go home. The device is being checked this morning. PHYSICAL EXAMINATION: On exam heart rate is 90 beats per minute. Blood pressure is 108/90. Respiratory rate 18. There is no jugular venous distention. Carotid upstroke is normal. There is no bruit. Chest exam reveals good air entry bilaterally. Heart exam reveals first and second heart sounds. No gallop. No murmur. Abdomen is soft. Exam of extremities did not reveal any edema. Peripheral pulses are felt. LABORATORY DATA: Lab show a hemoglobin of 12.9, platelet count is 207. Potassium is 3.7 creatinine is 1.1. The patient is currently on aspirin, Lipitor, Coreg, Cozaar, and Brilinta. ASSESSMENT: 1. Complete heart block status post a Bi-V AICD. 2. Ischemic cardiomyopathy. 3. Acute myocardial infarction, status post failed angioplasty. PLAN: The patient is somewhat hypertensive. I am going to decrease the dose of Cozaar. Otherwise stable for discharge. MMODL / IJN: [id number] /
[2021-02-05 11:50] LABS: Glucose,Whole Blood 210 mg/dL (75-99)
[2021-02-05 12:47] VITALS: BP 101/73
[2021-02-06] MEDS ORDERED: LOSARTAN 25 MG TAB PO SCH (09:00)
[2021-02-06] MEDS ORDERED: FUROSEMIDE 40 MG TAB PO SCH (09:00)
== END 2021-02-05 13:00 | disposition home health service (06) | DRG 222 ==
LOC: EC 17:24 → 2SICU 17:40
PROVIDERS: ADMIT Internal Medicine Geriatric Medicine; ATTEND Internal Medicine Geriatric Medicine
PROC: 4A023N7 Measurement of Cardiac Sampling and Pressure, Left Heart, Percutaneous Approach (ICD-10-PCS; 2021-01-31 17:59)
PROC: 027036Z Dilation of Coronary Artery, One Artery with Three Drug-eluting Intraluminal Devices, Percutaneous Approach (ICD-10-PCS; 2021-01-31 17:59)
PROC: 02C03ZZ Extirpation of Matter from Coronary Artery, One Artery, Percutaneous Approach (ICD-10-PCS; 2021-01-31 17:59)
PROC: B2111ZZ Fluoroscopy of Multiple Coronary Arteries using Low Osmolar Contrast (ICD-10-PCS; 2021-01-31 17:59)
PROC: 02H63JZ Insertion of Pacemaker Lead into Right Atrium, Percutaneous Approach (ICD-10-PCS; 2021-02-02)
PROC: 5A1223Z Performance of Cardiac Pacing, Continuous (ICD-10-PCS; 2021-02-02)
PROC: 02HK3KZ Insertion of Defibrillator Lead into Right Ventricle, Percutaneous Approach (ICD-10-PCS; principal; 2021-02-02 09:20)
PROC: 02HL3KZ Insertion of Defibrillator Lead into Left Ventricle, Percutaneous Approach (ICD-10-PCS; principal; 2021-02-02 09:20)
PROC: 02H63KZ Insertion of Defibrillator Lead into Right Atrium, Percutaneous Approach (ICD-10-PCS; principal; 2021-02-02 09:20)
PROC: 0JH609Z Insertion of Cardiac Resynchronization Defibrillator Pulse Generator into Chest Subcutaneous Tissue and Fascia, Open Approach (ICD-10-PCS; principal; 2021-02-02 09:20)
DX: I21.19 ST elevation (STEMI) myocardial infarction involving other coronary artery of inferior wall (principal); I50.21 Acute systolic (congestive) heart failure; I44.2 Atrioventricular block, complete; I11.0 Hypertensive heart disease with heart failure; E11.51 Type 2 diabetes mellitus with diabetic peripheral angiopathy without gangrene; E11.65 Type 2 diabetes mellitus with hyperglycemia; I25.5 Ischemic cardiomyopathy; Z20.822 Contact with and (suspected) exposure to COVID-19; I25.10 Atherosclerotic heart disease of native coronary artery without angina pectoris; I25.82 Chronic total occlusion of coronary artery; I08.1 Rheumatic disorders of both mitral and tricuspid valves; E78.5 Hyperlipidemia, unspecified; I87.8 Other specified disorders of veins; G47.33 Obstructive sleep apnea (adult) (pediatric); T38.3X6A Underdosing of insulin and oral hypoglycemic [antidiabetic] drugs, initial encounter; E66.9 Obesity, unspecified; Z68.34 Body mass index [BMI] 34.0-34.9, adult; Z91.128 Patient's intentional underdosing of medication regimen for other reason; Z87.891 Personal history of nicotine dependence; Z71.6 Tobacco abuse counseling; Z95.828 Presence of other vascular implants and grafts; Z86.718 Personal history of other venous thrombosis and embolism; Z98.890 Other specified postprocedural states; Z71.3 Dietary counseling and surveillance; Z80.42 Family history of malignant neoplasm of prostate; Z83.3 Family history of diabetes mellitus; Z79.02 Long term (current) use of antithrombotics/antiplatelets
CPT/HCPCS: 33210; 33225; 33249; 71045; 76937; 80048; 80053; 80061; 83036; 83735; 84484; 85025; 85027; 85610; 85730; 87635; 93005; 93306; 93458; 99285

== ENCOUNTER 2021-02-19 14:51 | Inpatient (IN) | payer MEDICARE ==
--- NOTE | 2021-02-19 15:08 | ED ---
General Adult HPI - General Stated complaint: AICD went off Time Seen by Provider: 02/19/21 15:00 Source: patient, EMS Mode of arrival: EMS Limitations: no limitations - History of Present Illness Initial comments: Dictation was produced using [employer] dictation software. please excuse any grammatical, word or spelling errors. Chief Complaint: 65-year-old male presents after defibrillator firing History of Present Illness: 65-year-old male he has past medical history of coronary artery disease, pacemaker defibrillator presents to the emergency department for AICD firing. Patient chart shows that he had a AICD placed earlier this month for heart failure, third-degree heart block. Patient states is at home at rest when his AICD fired 3 times. Patient states that 2 days ago he had another episode where his AICD fired. He went to Dr. Morrell's office earlier this week after he said his device fired. He was told by overnight babysitter that it was fine and they sent him home. The ROS documented in this emergency department record has been reviewed and co nfirmed by me. Those systems with pertinent positive or negative responses have been documented in the HPI. All other systems are other negative and/or noncontributory. PHYSICAL EXAM: General Impression: Alert and oriented x3, not in acute distress HEENT: Normocephalic atraumatic, extra-ocular movements intact, pupils equal and reactive to light bilaterally, mucous membranes moist. Cardiovascular: Heart regular rate and rhythm Chest: Able to complete full sentences, no retractions, no tachypnea Abdomen: abdomen soft, non-tender, non-distended, no organomegaly Musculoskeletal: Pulses present and equal in all extremities, no peripheral edema Motor: no focal deficits noted Neurological: CN II-XII grossly intact, no focal motor or sensory deficits noted Skin: Intact with no visualized rashes Psych: Normal affect and mood ED course: 65-year-old male with extensive history of cardiac disease, recent AICD placement presents after AICD firing times today. Vital signs upon arrival are within acceptable limits. Patient connected to moderate had multiple episodes of nonsustained V. tach. Patient started on amiodarone. Case is discussed with cardiology who will be on consult. Laboratory evaluation obtained. CBC, coag panel unremarkable. Metabolic panel is negative. Troponin is 1.590 which is decreased from earlier this month. Patient denies having any chest pain. Patient be admitted to intensive care unit for ventricular tachycardia. EKG interpretation: Ventricular rate 79, paced rhythm, QRS 170, QTc 502. No RI prolongation, no QTC prolongation, no ST or T-wave changes noted. Overall, this EKG is unremarkable - Related Data Home Medications Medication Instructions Recorded Confirmed Amiodarone HCl [Pacerone] 400 mg PO BID 02/19/21 02/19/21 Carvedilol [Coreg] 12.5 mg PO BID 02/19/21 02/19/21 Clopidogrel Bisulfate [Plavix] 75 mg PO DAILY 02/19/21 02/19/21 Furosemide [Lasix] 40 mg PO BID 02/19/21 02/19/21 Insulin Detemir (Levemir) [Levemir] 30 unit SQ DAILY@0700 02/19/21 02/19/21 Linagliptin [Tradjenta] 5 mg PO HS 02/19/21 02/19/21 Spironolactone 25 mg PO HS 02/19/21 02/19/21 Previous Rx's Medication Instructions Recorded Acetaminophen Tab [Tylenol] 500 mg PO Q4HR PRN tab 02/05/21 Aspirin 81 mg PO DAILY chew 02/05/21 Atorvastatin [Lipitor] 80 mg PO HS #30 tab 02/05/21 Losartan [Cozaar] 12.5 mg PO DAILY #30 tab 02/05/21 Nitroglycerin Sl Tabs [Nitrostat] 0.4 mg SUBLINGUAL Q5M PRN #25 tab 02/05/21 Allergies Allergy/AdvReac Type Severity Reaction Status Date / Time No Known Allergies Allergy Verified 02/19/21 16:23 Review of Systems ROS Statement: Those systems with pertinent positive or pertinent negative responses have been documented in the HPI. ROS Other: All systems not noted in ROS Statement are negative. Past Medical History Past Medical History: No Reported History, Diabetes Mellitus, Myocardial Infarction ([place]), Osteoarthritis ([place]) History of Any Multi-Drug Resistant Organisms: None Reported Past Surgical History: AICD, Heart Catheterization With Stent, Orthopedic Surgery Additional Past Surgical History / Comment(s): DVT Past Anesthesia/Blood Transfusion Reactions: No Reported Reaction Past Psychological History: No Psychological Hx Reported Smoking Status: Former smoker Past Alcohol Use History: Occasional Past Drug Use History: Marijuana - Past Family History Mother Additional Family Medical History / Comment(s): states "mom lived to 90" Father Family Medical History: Cancer Additional Family Medical History / Comment(s): states "father of prostate cancer" General Exam Limitations: no limitations Course Vital Signs 02/19/21 02/19/21 02/19/21 15:01 16:18 16:34 Pulse Rate 78 77 74 Respiratory 16 16 18 Rate Blood Pressure 127/93 149/100 136/90 O2 Sat by Pulse 96 98 99 Oximetry Medical Decision Making - Lab Data Result diagrams: 02/19/21 15:00 02/19/21 15:00 Lab Results 02/19/21 02/19/21 02/19/21 Range/Units 15:00 15:00 15:00 WBC 8.6 (3.8-10.6) k/uL RBC 4.12 L (4.30-5.90) m/uL Hgb 12.6 L (13.0-17.5) gm/dL Hct 38.0 L (39.0-53.0) % MCV 92.2 (80.0-100.0) fL MCH 30.5 (25.0-35.0) pg MCHC 33.1 (31.0-37.0) g/dL RDW 14.8 (11.5-15.5) % Plt Count 304 (150-450) k/uL MPV 7.8 Neutrophils % 80 % Lymphocytes % 11 % Monocytes % 6 % Eosinophils % 2 % Basophils % 1 % Neutrophils # 6.9 (1.3-7.7) k/uL Lymphocytes # 1.0 (1.0-4.8) k/uL Monocytes # 0.5 (0-1.0) k/uL Eosinophils # 0.1 (0-0.7) k/uL Basophils # 0.1 (0-0.2) k/uL Hypochromasia Slight PT 13.1 H (9.0-12.0) sec INR 1.3 H (<1.2) APTT 25.6 (22.0-30.0) sec Sodium 139 (137-145) mmol/L Potassium 4.9 (3.5-5.1) mmol/L Chloride 103 (98-107) mmol/L Carbon Dioxide 27 (22-30) mmol/L Anion Gap 9 mmol/L BUN 32 H (9-20) mg/dL Creatinine 1.25 (0.66-1.25) mg/dL Est GFR (CKD-EPI)AfAm 69 (>60 ml/min/1.73 sqM) Est GFR (CKD-EPI)NonAf 60 (>60 ml/min/1.73 sqM) Glucose 133 H (74-99) mg/dL Calcium 9.1 (8.4-10.2) mg/dL Magnesium 2.0 (1.6-2.3) mg/dL Total Bilirubin 0.6 (0.2-1.3) mg/dL AST 40 (17-59) U/L ALT 48 (4-49) U/L Alkaline Phosphatase 103 (38-126) U/L Troponin I (0.000-0.034) ng/mL Total Protein 6.6 (6.3-8.2) g/dL Albumin 3.5 (3.5-5.0) g/dL 02/19/21 Range/Units 15:00 WBC (3.8-10.6) k/uL RBC (4.30-5.90) m/uL Hgb (13.0-17.5) gm/dL Hct (39.0-53.0) % MCV (80.0-100.0) fL MCH (25.0-35.0) pg MCHC (31.0-37.0) g/dL RDW (11.5-15.5) % Plt Count (150-450) k/uL MPV Neutrophils % % Lymphocytes % % Monocytes % % Eosinophils % % Basophils % % Neutrophils # (1.3-7.7) k/uL Lymphocytes # (1.0-4.8) k/uL Monocytes # (0-1.0) k/uL Eosinophils # (0-0.7) k/uL Basophils # (0-0.2) k/uL Hypochromasia PT (9.0-12.0) sec INR (<1.2) APTT (22.0-30.0) sec Sodium (137-145) mmol/L Potassium (3.5-5.1) mmol/L Chloride (98-107) mmol/L Carbon Dioxide (22-30) mmol/L Anion Gap mmol/L BUN (9-20) mg/dL Creatinine (0.66-1.25) mg/dL Est GFR (CKD-EPI)AfAm (>60 ml/min/1.73 sqM) Est GFR (CKD-EPI)NonAf (>60 ml/min/1.73 sqM) Glucose (74-99) mg/dL Calcium (8.4-10.2) mg/dL Magnesium (1.6-2.3) mg/dL Total Bilirubin (0.2-1.3) mg/dL AST (17-59) U/L ALT (4-49) U/L Alkaline Phosphatase (38-126) U/L Troponin I 1.590 H* (0.000-0.034) ng/mL Total Protein (6.3-8.2) g/dL Albumin (3.5-5.0) g/dL Critical Care Time Critical Care Time: Yes Total Critical Care Time: 33 Disposition Clinical Impression: Ventricular tachycardia Disposition: ADMITTED IP TO THIS [facility] Condition: Critical Referrals: Arnie Burks MD [Primary Care Provider] - 1-2 days
[2021-02-19 15:24] LABS: Basophils # (A) 0.1 k/uL (0-0.2); Basophils % (A) 1 %; Eosinophils # (A) 0.1 k/uL (0-0.7); Eosinophils % (A) 2 %; HGB 12.6 gm/dL (13.0-17.5); Hypochromasia Slight; Lymphocytes % (A) 11 %; MCH 30.5 pg (25.0-35.0); MCHC 33.1 g/dL (31.0-37.0); MCV 92.2 fL (80.0-100.0); Mean Platelet Volume 7.8; Monocytes # (A) 0.5 k/uL (0-1.0); Monocytes % (A) 6 %; Neutrophils # (A) 6.9 k/uL (1.3-7.7); Neutrophils % (A) 80 %; Platelet Count 304 k/uL (150-450); RBC 4.12 m/uL (4.30-5.90); RDW 14.8 % (11.5-15.5); WBC 8.6 k/uL (3.8-10.6)
[2021-02-19 15:37] LABS: INR 1.3 (<1.2); Partial Thromboplastin Time 25.6 sec (22.0-30.0); Prothrombin Time 13.1 sec (9.0-12.0)
[2021-02-19] MEDS ORDERED: DEXTROSE 5% IN WATER 100 ML with AMIODARONE 150 MG IV ONE ×2 (15:43→18:35)
--- NOTE | 2021-02-19 15:45 | XR ---
EXAMINATION TYPE: XR chest 2V DATE OF EXAM: 02/19/2021 COMPARISON: 02/04/2021 HISTORY: dysrhythmia TECHNIQUE: Frontal and lateral views of the chest are obtained. FINDINGS: There is left basilar pleural parenchymal disease is present. The right lung is grossly c lear. Enlargement of the cardiac silhouette appears similar to the prior examination with AICD leads in unc hanged locations. IMPRESSION: New left basilar pleural-parenchymal disease.
[2021-02-19 15:50] LABS: Albumin 3.5 g/dL (3.5-5.0); Calcium 9.1 mg/dL (8.4-10.2); Potassium 4.9 mmol/L (3.5-5.1); Total Bilirubin 0.6 mg/dL (0.2-1.3); Total Protein 6.6 g/dL (6.3-8.2)
[2021-02-19] MEDS: DEXTROSE 5% IN WATER 250 ML with AMIODARONE 300 MG IV ONE ×2 (16:32→16:51)
[2021-02-19] MEDS ORDERED: NALOXONE 0.4 MG/ML 1 ML VIAL IV PRN (16:36)
[2021-02-19] MEDS ORDERED: ASPIRIN 81 MG PO STA (16:36)
[2021-02-19] MEDS ORDERED: AMIODARONE 360 MG in DEXTROSE 5% IN WATER 200 ML IV ONE ×2 (16:49)
[2021-02-19 18:33] LABS: Glucose,Whole Blood 137 mg/dL (75-99)
[2021-02-19] MEDS ORDERED: LIDOCAINE 2% SYG (PF) 100 MG/5 ML IV ONE (18:35)
[2021-02-19] MEDS: LIDOCAINE-D5W PMX 2G/250ML 2,000 MG in DEXTROSE/WATER 1 250ML.BAG IV SCH (19:44)
[2021-02-19] MEDS ORDERED: AMIODARONE 450 MG in DEXTROSE 5% IN WATER 250 ML IV SCH ×2 (22:50)
[2021-02-20] MEDS ORDERED: AMIODARONE 360 MG in DEXTROSE 5% IN WATER 200 ML IV ONE ×2
[2021-02-20 05:16] LABS: Hypochromasia Slight; MCHC 32.3 g/dL (31.0-37.0); MCV 92.9 fL (80.0-100.0); Mean Platelet Volume 7.8; Platelet Count 254 k/uL (150-450); RBC 3.99 m/uL (4.30-5.90); RDW 15.2 % (11.5-15.5); WBC 7.9 k/uL (3.8-10.6)
[2021-02-20 05:27] LABS: INR 1.3 (<1.2); Prothrombin Time 13.3 sec (9.0-12.0)
[2021-02-20 05:31] LABS: Calcium 8.9 mg/dL (8.4-10.2); Potassium 4.5 mmol/L (3.5-5.1)
[2021-02-20] MEDS ORDERED: FUROSEMIDE 10 MG/ML 4 ML VIAL IV STA (06:59)
[2021-02-20] MEDS: ASPIRIN 81 MG PO SCH (08:19)
[2021-02-20] MEDS: ATORVASTATIN 80 MG TAB PO SCH (08:19)
[2021-02-20] MEDS: SPIRONOLACTONE 25 MG TAB PO SCH (08:19)
[2021-02-20] MEDS: METOPROLOL TARTRATE 50 MG TAB PO SCH ×2 (08:19→21:53)
[2021-02-20] MEDS: CLOPIDOGREL 75 MG TAB PO SCH (08:19)
--- NOTE | 2021-02-20 09:41 | CONS ---
CONSULTATION HISTORY: Benson Feliciano is a 65-year-old gentleman with a recent hospitalization with acute inferior NJ with a right coronary occlusion later with a lot of thrombus burden and also had multivessel stenting performed. He has an ejection fraction of 20 to 25 percent, developed third-degree heart block and went on to have a permanent biventricular ICD that was performed on February [address] Jara for complete heart block and severe ischemic cardiomyopathy with wide QRS. He was recently seen with recurrent episodes of ventricular tachycardia with shocks in the office and was initiated on amiodarone orally by Dr. Morrell who sees him in the office. However, the patient came to the emergency room yesterday with at least 3 episodes of shock that occurred and was seen in the emergency room by the ER physician. He had 3 episodes of shocks and after arrival he had another episode as well. I placed him on IV amiodarone drip and then after coming to the ICU, he had several runs of ventricular tachycardia. I therefore gave an additional bolus of amiodarone and also added a lidocaine 50 mg IV push and 1 mg/hour drip. With the combination of these 2 medications, he has remained in sinus rhythm or a ventricular paced rhythm with atrial sensing. He is comfortable this morning without symptoms. There is a modest troponin elevation. He has no chest pain at the time of my evaluation. PAST PAST MEDICAL HISTORY: Ischemic cardiomyopathy with recent inferior NJ and a biventricular ICD for complete heart block, history of orthopedic surgery. MEDICATIONS: Medications at home include amiodarone which was just started at 400 mg b.i.d., Coreg 12.5 mg b.i.d., Plavix 75 mg Lasix 40 mg b.i.d., insulin, Tradjenta, Aldactone, aspirin 81 mg daily, Lipitor 80 mg daily, Cozaar 12.5 mg daily. PHYSICAL EXAMINATION: On examination blood pressure is 130/70, pulse rate is 60, appears to be paced. HEENT unremarkable. Fundus was not examined by me. NECK: Supple there is JVD of 1 cm. No carotid bruit heart exam reveals S1, S2. Distant heart sounds. I can't appreciate any significant murmurs. LUNGS: Clear. ABDOMEN: Soft, nontender. EXTREMITIES: Lower extremities reveal normal pulses. No edema. CENTRAL NERVOUS SYSTEM: Normal. IMPRESSION: 1. Ventricular tachycardia. 2. Ischemic cardiomyopathy. 3. Status post biventricular ICD. 4. Type 2 diabetes. 5. Hyperlipidemia. 6. Hypertension. RECOMMENDATIONS: I am recommending that we switch him from Coreg to metoprolol tartrate 50 mg b.i.d., losartan 25 mg daily. I will leave him on the lidocaine drip. Once the amiodarone drip is completed at 12 noon, we will switch him to oral amiodarone at 200 mg 3 times a day. We will give him 1 dose of IV Lasix push and resume Lasix 40 mg b.i.d. Atorvastatin will also be resumed. Overall prognosis seems somewhat guarded. However, we will leave the lidocaine drip on today and I will consider placing him on Mexitil combination tomorrow if necessary. I discussed my thoughts in detail with the patient. We will keep him in ICU. PRIYA / MEENA: [id number] /
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
[2021-02-20] MEDS: LOSARTAN 25 MG TAB PO SCH (12:06)
[2021-02-20] MEDS: AMIODARONE 200 MG TAB PO SCH ×3 (12:07→21:56)
[2021-02-20] MEDS: ENOXAPARIN 40 MG/0.4 ML SYRINGE SQ SCH (15:43)
[2021-02-20] MEDS: FUROSEMIDE 40 MG TAB PO SCH (15:44)
[2021-02-20] MEDS: LIDOCAINE-D5W PMX 2G/250ML 2,000 MG in DEXTROSE/WATER 1 250ML.BAG IV SCH (21:53)
[2021-02-20] MEDS: LINAGLIPTIN 5 MG TABLET PO SCH (21:53)
[2021-02-21 05:07] LABS: Basophils % (A) 0 %; Eosinophils # (A) 0.1 k/uL (0-0.7); Eosinophils % (A) 1 %; HCT 37.4 % (39.0-53.0); Hypochromasia Slight; Lymphocytes # (A) 1.3 k/uL (1.0-4.8); Lymphocytes % (A) 15 %; MCH 29.8 pg (25.0-35.0); MCHC 32.2 g/dL (31.0-37.0); MCV 92.6 fL (80.0-100.0); Mean Platelet Volume 8.3; Monocytes # (A) 0.6 k/uL (0-1.0); Monocytes % (A) 7 %; Neutrophils # (A) 6.4 k/uL (1.3-7.7); Neutrophils % (A) 75 %; Platelet Count 251 k/uL (150-450); RBC 4.03 m/uL (4.30-5.90); RDW 14.7 % (11.5-15.5); WBC 8.5 k/uL (3.8-10.6)
[2021-02-21 05:19] LABS: Albumin 3.2 g/dL (3.5-5.0); Calcium 9.1 mg/dL (8.4-10.2); Potassium 4.4 mmol/L (3.5-5.1); Total Bilirubin 0.4 mg/dL (0.2-1.3); Total Protein 6.1 g/dL (6.3-8.2)
[2021-02-21] MEDS: INSULIN DETEMIR (LEVEMIR) 100 UNIT/ML SYR SQ SCH (07:08)
[2021-02-21] MEDS: FUROSEMIDE 40 MG TAB PO SCH ×2 (08:08→15:59)
[2021-02-21] MEDS: SPIRONOLACTONE 25 MG TAB PO SCH (08:08)
[2021-02-21] MEDS: METOPROLOL TARTRATE 50 MG TAB PO SCH ×2 (08:08→20:18)
[2021-02-21] MEDS: ASPIRIN 81 MG PO SCH (08:08)
[2021-02-21] MEDS: CLOPIDOGREL 75 MG TAB PO SCH (08:08)
[2021-02-21] MEDS: ATORVASTATIN 80 MG TAB PO SCH (08:08)
[2021-02-21] MEDS: AMIODARONE 200 MG TAB PO SCH ×3 (08:08→20:18)
[2021-02-21] MEDS: ENOXAPARIN 40 MG/0.4 ML SYRINGE SQ SCH (08:09)
[2021-02-21] MEDS: LOSARTAN 25 MG TAB PO SCH (08:16)
[2021-02-21] MEDS: MEXILETINE 150 MG CAP PO SCH ×2 (08:53→21:45)
--- NOTE | 2021-02-21 10:20 | P.PN ---
Subjective Progress Note Date: 02/21/21 History of present illness: This is a 65-year-old male patient of Dr. Arnie Burks with a past medical history of hypertension, hyperlipidemia, peripheral vascular disease status post left lower extremity bypass, obstructive sleep apnea status post uvular surgery, diabetes type 2, previous myocardial infarction on 02/01/2021 with implantation of a permanent biventricular AICD for secondary prevention, due to complete heart block and severe ischemic cardiomyopathy with a wide QRS complex. previous EF 20-25%. Patient presented to the emergency room due to his AICD going off 3 times. Patient was seen in the cardiology office previously due to recurrent episodes of ventricular tachycardia with shock and was initiated on amiodarone orally. After arrival to the emergency room patient received a additional shock. He was then placed on amiodarone drip where he continued to have several runs of ventricular tachycardia. Patient was given additional bolus of amiodarone and added lidocaine 50 mg IV push and 1 mg per hour drip. Patient is currently in sinus rhythm or a ventricular paced rhythm. At this time is found resting comfortably sitting up in a chair. He has not had any further episodes of ventricular tachycardia. He denies any chest pain or difficulty breathing. Patient does state that he is unable to sleep lying flat. He continues to have some shortness of breath with activity. 02/21: Patient is found sitting up in the chair. he is ambulatory within the room. Denies any shortness of breath or chest pain with activity. Patient has not had any episodes of V. tach. Lidocaine drip has been DC'd. Currently on amiodarone by mouth. And started on mexitil oral. Patient remains afebrile, pulse rate 70, respirations 27, Blood pressure 121/81, pulse ox 99% on room air. Obesity 8.5, hemoglobin 12.0, potassium 4.4, BUN 27, creatinine 1.24. She'll work to see patient to assist with drug coverage of the new medication. Review Of Systems: Constitutional: No fever, no chills, no night sweats. No weight change. No w eakness, fatigue or lethargy. No daytime sleepiness. EENT: No headache. No blurred vision or double vision, no loss of vision. No loss of Hearing, no ringing in the ears, no dizziness. No nasal drainage or congestion. No epistaxis. No sore throat. Lungs: Reports shortness of breath, cough, no sputum production. No wheezing. Cardiovascular: No chest pain, no lower extremity edema. No palpitations. Reports paroxysmal nocturnal dyspnea. No orthopnea. No lightheadedness or dizziness. No syncopal episodes. Abdominal: no abdominal discomfort. No nausea, vomiting. no diarrhea. No constipation. No bloody or tarry stools. no loss of appetite. Genitourinary: No dysuria, increased frequency, urgency. No urinary retention. Musculoskeletal: No myalgias. No muscle weakness, no gait dysfunction, no frequent falls. No back pain. No neck pain. Integumentary: No wounds, no lesions. No rash or pruritus. No unusual bruising. No change in hair or nails. Neurologic: No aphasia. No facial droop. No change in mentation. No head injury. No headache. No paralysis. No paresthesia. Psychiatric: No depression. No anxiety. No mood swings. Endocrine: No abnormal blood sugars. No weight change. No excessive sweating or thirst. Physical examination General Appearance: This is a 65-year-old obese male. He is resting in the ICU sitting up in a recliner and appears to be comfortable. Alert, cooperative, no distress, appears stated age. Neck HEENT: Supple, no lymphadenopathy, no thyroid enlargement, no carotid bruits. Lungs: Clear to auscultation without crackles or wheezes no rhonchi, no deformity. Chest Wall: Chest wall normal expansion with deep inspiration no tenderness and no deformity was found on exam, no costochondral pain or discomfort. Heart: Regular rate and rhythm, S1, S2 normal, no murmur, rub or gallop. Back: Symmetric, no curvature, ROM normal, no CVA tenderness. Abdomen: Soft, non-tender, no rebound or rigidity, no hepatosplenomegaly. Extremities: Edema noted to bilateral lower extremities. Extremities normal, atraumatic, no cyanosis Pulses: 2+ and symmetric. Skin: Skin color, texture, tugor normal, no rashes or lesions. Neurologic: Alert oriented x3 cranial nerves II through XII intact, no motor deficit, no abnormal balance or gait Assessment and plan 1. Ventricular tachycardia. Cardiology consult appreciated, amiodarone 200 mg by mouth 3 times a day, lidocaine drip 1 mg/m. d/c. started on mexitil. He will be transferred to [facility]. consult social work to assist with pharmaceutical coverage. 2. Ischemic cardiomyopathy with EF of 20-25% status post permanent biventricular AICD. Patient is currently in ICU, will be transferred to 3 . will continue to monitor repeat labs. Continue aspirin 81 mg, Plavix 75 mg, Lasix 40 mg twice a day 3. Diabetes Levemir 30 units subcu daily, linagliptin 5 mg by mouth at bedtime 4. Hyperlipidemia. Atorvastatin 80 mg by mouth 5. Hypertension Cozaar 25 mg by mouth, Lopressor 50 mg by mouth twice a day the spironolactone 25 mg by mouth daily 6. History of DVT sequential compression garment, Lovenox 7. Osteoarthritis, stable. 8. DVT prophylaxis: Lovenox 40 mg daily 9. GI prophylaxis: Protonix CODE STATUS: Full code Patient will be admitted for a minimum of 2 nights day Discharge plan: Possible discharge Monday More than likely home Impression and plan of care have been directed as dictated by the signing physician. Mee Moreno nurse practitioner acting as scribe for signing physician. Objective - Vital Signs Vital signs: Vital Signs Temp 97.5 F L 02/21/21 08:00 Pulse 60 02/21/21 09:00 Resp 26 H 02/21/21 09:00 BP 134/87 02/21/21 09:00 Pulse Ox 99 02/21/21 09:00 Intake & Output 02/20/21 02/21/21 02/21/21 18:59 06:59 18:59 Intake Total 450 746.125 330 Output Total 2075 700 50 Balance -1625 46.125 280 Weight 120.1 kg Intake: Intake, IV Titration 196.125 Amount Lidocaine-D5w Pmx 2G/ 196.125 250Ml 2,000 mg In Dextrose/Water 1 250ml. bag @ 1 MG/MIN 7.5 mls/hr IV .Q24H IDALIA Rx#: [id number] Oral 450 550 330 Output: Urine 2075 700 50 Other: Voiding Method Urinal Urinal # Voids 0 1 - Labs CBC & Chem 7: 02/21/21 04:15 02/21/21 04:15 Labs: Abnormal Lab Results - Last 24 Hours (Table) 02/21/21 02/21/21 Range/Units 04:15 04:15 RBC 4.03 L (4.30-5.90) m/uL Hgb 12.0 L (13.0-17.5) gm/dL Hct 37.4 L (39.0-53.0) % BUN 27 H (9-20) mg/dL Glucose 146 H (74-99) mg/dL Total Protein 6.1 L (6.3-8.2) g/dL Albumin 3.2 L (3.5-5.0) g/dL
--- NOTE | 2021-02-21 11:24 | PN ---
PROGRESS NOTE Mr. Feliciano is in sinus rhythm, comfortable. Occasional paced beats. He has not had any more ventricular ectopy. Electrolytes are good. I am recommending that we increase the losartan to 50 mg daily and discontinue lidocaine drip after starting mexiletine 150 mg q.12 hours. We will continue amiodarone orally that was switched over from IV to oral yesterday. EXAMINATION: Vitals are stable, JVD 1 cm, no carotid bruit. S1-S2 heard normally but distantly. Lungs reveal diminished air entry. Abdomen is soft. Lower extremities reveal diminished pulses. Central nervous system is normal. IMPRESSION: 1. Ischemic cardiomyopathy, history of inferior NH and RCA PCI. 2. History of complete heart block requiring a biventricular ICD. 3. Recurrent ventricular tachycardia status post IV amiodarone and lidocaine, now on a combination of mexiletine and amiodarone. RECOMMENDATIONS: We will increase activity and increase losartan, add mexiletine and check room air oxygen saturation and hopefully discharge in the next day or so. MMODL / IJN: [id number] /
[2021-02-21] MEDS: LINAGLIPTIN 5 MG TABLET PO SCH (20:18)
[2021-02-21] MEDS ORDERED: LOSARTAN 50 MG TAB PO SCH (21:00)
[2021-02-22] MEDS: INSULIN DETEMIR (LEVEMIR) 100 UNIT/ML SYR SQ SCH (07:03)
[2021-02-22 07:25] LABS: Glucose,Whole Blood 137 mg/dL (75-99)
[2021-02-22 07:50] LABS: Basophils % (A) 0 %; Eosinophils # (A) 0.1 k/uL (0-0.7); Eosinophils % (A) 1 %; HCT 38.6 % (39.0-53.0); HGB 12.5 gm/dL (13.0-17.5); Hypochromasia Slight; Lymphocytes # (A) 1.1 k/uL (1.0-4.8); Lymphocytes % (A) 14 %; MCH 29.9 pg (25.0-35.0); MCHC 32.3 g/dL (31.0-37.0); MCV 92.6 fL (80.0-100.0); Monocytes # (A) 0.6 k/uL (0-1.0); Monocytes % (A) 8 %; Neutrophils # (A) 5.9 k/uL (1.3-7.7); Neutrophils % (A) 76 %; Platelet Count 268 k/uL (150-450); RBC 4.17 m/uL (4.30-5.90); WBC 7.8 k/uL (3.8-10.6)
[2021-02-22 08:04] LABS: Albumin 3.5 g/dL (3.5-5.0); Calcium 9.2 mg/dL (8.4-10.2); Potassium 4.4 mmol/L (3.5-5.1); Total Bilirubin 0.4 mg/dL (0.2-1.3); Total Protein 6.6 g/dL (6.3-8.2)
[2021-02-22] MEDS: FUROSEMIDE 40 MG TAB PO SCH ×2 (08:15→16:17)
[2021-02-22] MEDS: METOPROLOL TARTRATE 50 MG TAB PO SCH ×2 (08:15→21:14)
[2021-02-22] MEDS: ASPIRIN 81 MG PO SCH (08:15)
[2021-02-22] MEDS: AMIODARONE 200 MG TAB PO SCH ×3 (08:16→21:14)
[2021-02-22] MEDS: CLOPIDOGREL 75 MG TAB PO SCH (08:16)
[2021-02-22] MEDS: ENOXAPARIN 40 MG/0.4 ML SYRINGE SQ SCH (08:16)
[2021-02-22] MEDS: SPIRONOLACTONE 25 MG TAB PO SCH (08:16)
[2021-02-22] MEDS: ATORVASTATIN 80 MG TAB PO SCH (08:16)
[2021-02-22] MEDS ORDERED: METOPROLOL TARTRATE 50 MG TAB PO STA (09:41)
[2021-02-22] MEDS: MEXILETINE 150 MG CAP PO SCH ×2 (10:45→21:14)
[2021-02-22 11:27] LABS: T4, Free (Free Thyroxine) 1.34 ng/dL (0.78-2.19)
[2021-02-22 12:17] LABS: Glucose,Whole Blood 151 mg/dL (75-99)
--- NOTE | 2021-02-22 12:19 | P.PN ---
Subjective Progress Note Date: 02/22/21 History of present illness: This is a 65-year-old male patient of Dr. Arnie Burks with a past medical history of hypertension, hyperlipidemia, peripheral vascular disease status post left lower extremity bypass, obstructive sleep apnea status post uvular surgery, diabetes type 2, previous myocardial infarction on 02/01/2021 with implantation of a permanent biventricular AICD for secondary prevention, due to complete heart block and severe ischemic cardiomyopathy with a wide QRS complex. previous EF 20-25%. Patient presented to the emergency room due to his AICD going off 3 times. Patient was seen in the cardiology office previously due to recurrent episodes of ventricular tachycardia with shock and was initiated on amiodarone orally. After arrival to the emergency room patient received a additional shock. He was then placed on amiodarone drip where he continued to have several runs of ventricular tachycardia. Patient was given additional bolus of amiodarone and added lidocaine 50 mg IV push and 1 mg per hour drip. Patient is currently in sinus rhythm or a ventricular paced rhythm. At this time is found resting comfortably sitting up in a chair. He has not had any further episodes of ventricular tachycardia. He denies any chest pain or difficulty breathing. Patient does state that he is unable to sleep lying flat. He continues to have some shortness of breath with activity. 02/21: Patient is found sitting up in the chair. he is ambulatory within the room. Denies any shortness of breath or chest pain with activity. Patient has not had any episodes of V. tach. Lidocaine drip has been DC'd. Currently on amiodarone by mouth. And started on mexitil oral. Patient remains afebrile, pulse rate 70, respirations 27, Blood pressure 121/81, pulse ox 99% on room air. Obesity 8.5, hemoglobin 12.0, potassium 4.4, BUN 27, creatinine 1.24. She'll work to see patient to assist with drug coverage of the new medication. 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 He has been afebrile, heart rate in the 60s and 70s, blood pressure 127/72, pulse ox 96% on room air. WBC 7.8, hemoglobin 12.5, platelet count 268. Sodium 141, potassium 4.4, chloride 100, CO2 33, BUN 28 creatinine 1.22. Blood sugar 145. Liver function tests were normal. Dr. Jara is further adjusting patient's medications and there was concern about the cost of Mexitil. [facility] found the cheapest sal at [facility] and a prescription will be sent there for Mexitil 150 mg every 8 hours. Anticipate probable discharge tomorrow. Review Of Systems: Constitutional: No fever, no chills, no night sweats. No weight change. No we akness, fatigue or lethargy. No daytime sleepiness. EENT: No headache. No blurred vision or double vision, no loss of vision. No loss of Hearing, no ringing in the ears, no dizziness. No nasal drainage or congestion. No epistaxis. No sore throat. Lungs: Reports shortness of breath, cough, no sputum production. No wheezing. Cardiovascular: No chest pain, no lower extremity edema. No palpitations. Reports paroxysmal nocturnal dyspnea. No orthopnea. No lightheadedness or dizziness. No syncopal episodes. Abdominal: no abdominal discomfort. No nausea, vomiting. no diarrhea. No constipation. No bloody or tarry stools. no loss of appetite. Genitourinary: No dysuria, increased frequency, urgency. No urinary retention. Musculoskeletal: No myalgias. No muscle weakness, no gait dysfunction, no frequent falls. No back pain. No neck pain. Integumentary: No wounds, no lesions. No rash or pruritus. No unusual bruising. No change in hair or nails. Neurologic: No aphasia. No facial droop. No change in mentation. No head injury. No headache. No paralysis. No paresthesia. Psychiatric: No depression. No anxiety. No mood swings. Endocrine: No abnormal blood sugars. No weight change. No excessive sweating or thirst. Physical examination General Appearance: This is a 65-year-old obese male. He is resting in a recliner and appears to be comfortable. Alert, cooperative, no distress, appears stated age. Neck HEENT: Supple, no lymphadenopathy, no thyroid enlargement, no carotid bruits. Lungs: Clear to auscultation without crackles or wheezes no rhonchi, no deformity. Chest Wall: Chest wall normal expansion with deep inspiration no tenderness and no deformity was found on exam, no costochondral pain or discomfort. Heart: Regular rate and rhythm, S1, S2 normal, no murmur, rub or gallop. Back: Symmetric, no curvature, ROM normal, no CVA tenderness. Abdomen: Soft, non-tender, no rebound or rigidity, no hepatosplenomegaly. Extremities: Edema noted to bilateral lower extremities. Extremities normal, atraumatic, no cyanosis Pulses: 2+ and symmetric. Skin: Skin color, texture, tugor normal, no rashes or lesions. Neurologic: Alert oriented x3 cranial nerves II through XII intact, no motor deficit, no abnormal balance or gait Assessment and plan 1. Ventricular tachycardia. Cardiology consult appreciated, amiodarone 200 mg by mouth 3 times a day, , Lopressor 100 mg twice daily, Mexitil 150 mg 3 times daily. 2. Ischemic cardiomyopathy with EF of 20-25% status post permanent biventricular AICD. Continue to monitor repeat labs. Continue aspirin 81 mg, Plavix 75 mg, Lasix 40 mg twice a day 3. Diabetes mellitus type II. Continue Levemir 30 units subcu daily, linagliptin 5 mg by mouth at bedtime 4. Hyperlipidemia. Atorvastatin 80 mg by mouth 5. Hypertension Cozaar 25 mg by mouth, Lopressor 50 mg by mouth twice a day the spironolactone 25 mg by mouth daily 6. History of DVT sequential compression garment, Lovenox 7. Osteoarthritis, stable. 8. DVT prophylaxis: Lovenox 40 mg daily 9. GI prophylaxis: Protonix CODE STATUS: Full code Discharge plan Home on Monday Impression and plan of care have been directed as dictated by the signing physician. Rachell Lao nurse practitioner acting as scribe for signing physician. Objective - Vital Signs Vital signs: Vital Signs Temp 97.8 F 02/22/21 08:00 Pulse 67 02/22/21 08:00 Resp 16 02/22/21 08:00 BP 127/72 02/22/21 08:00 Pulse Ox 96 02/22/21 08:00 Intake & Output 02/21/21 02/22/21 02/22/21 18:59 06:59 18:59 Intake Total 530 400 Output Total 350 415 Balance 180 -15 Intake: Oral 530 400 Output: Urine 350 415 Other: Voiding Method Toilet Toilet Urinal Urinal - Labs CBC & Chem 7: 02/22/21 07:20 02/22/21 07:20 Labs: Abnormal Lab Results - Last 24 Hours (Table) 02/22/21 02/22/21 02/22/21 Range/Units 07:20 07:20 07:22 RBC 4.17 L (4.30-5.90) m/uL Hgb 12.5 L (13.0-17.5) gm/dL Hct 38.6 L (39.0-53.0) % Carbon Dioxide 33 H (22-30) mmol/L BUN 28 H (9-20) mg/dL Glucose 145 H (74-99) mg/dL POC Glucose (mg/dL) 137 H (75-99) mg/dL
--- NOTE | 2021-02-22 13:10 | P.PN ---
Subjective This is a pleasant 65-year-old male past medical history significant for inferior wall [place] s/p mult-vessel PCI, ischemic cardiomyopathy s/p AICD, complete heart block, systolic heart failure, diabetes mellitus, hypertension and dyslipidemia. He follows in the office with Dr. Morrell. He is seen and examined sitting up in recliner in no acute distress. He states he has been short of breath with orthopnea. He denies chest pain, dizziness or palpitations. Blood pressure 127/72 heart rate 67 afebrile and maintaining oxygen saturation on room air. Laboratory data reviewed, WBC 7.8, hgb 12.5, plt 268, sodium 141, potassium 4.4, creatinine 1.22, TSH 5.25. Telemetry tracings reviewed, he has had no further VT in the previous 24 hours. Currently maintained on amiodarone 200 mg TID, aspirin 81 mg daily, atorvastatin 80 mg daily, plavix 75 mg daily, lasix 40 mg BID, losartan 50 mg daily, lopressor 50 mg BID, mexilitine 150 mg BID and aldactone 25 mg daily. GENERAL: Well-appearing, well-nourished and in no acute distress. NECK: Supple with bilateral JVD noted, no thyromegaly. LUNGS: Breath sounds clear to auscultation bilaterally. Respiration equal and unlabored. No wheezes, rales or rhonchi. HEART: Regular rate and rhythm without murmurs, rubs or gallops. S1 and S2 heard. EXTREMITIES: Normal range of motion, no edema. No clubbing or cyanosis. Peripheral pulses intact. ASSESSMENT Sustained ventricular tachycardia Ischemic cardiomyopathy Coronary artery disease Hypertension Dyslipdiemia Diabetes mellitus PLAN Continue to optimize his medical regimen. Decrease losartan to home dose of 12.5 mg so we have room to increase beta blockers. Increase lopressor to 100 mg BID. Consider increasing mexilitine if needed and will hopefully be able to further increase beta blockers tomorrow. Ongoing telemetry monitoring. Nurse Practitioner note has been reviewed, I agree with a documented findings and plan of care. Patient was seen and examined. Objective - Vital Signs Vital signs: Vital Signs Temp 97.8 F 02/22/21 08:00 Pulse 67 02/22/21 08:00 Resp 16 02/22/21 08:00 BP 127/72 02/22/21 08:00 Pulse Ox 96 02/22/21 08:00 Intake & Output 02/21/21 02/22/21 02/22/21 18:59 06:59 18:59 Intake Total 530 400 480 Output Total 350 415 Balance 180 -15 480 Intake: Oral 530 400 480 Output: Urine 350 415 Other: Voiding Method Toilet Toilet Toilet Urinal Urinal Urinal # Voids 2 - Labs CBC & Chem 7: 02/22/21 07:20 02/22/21 07:20 Labs: Abnormal Lab Results - Last 24 Hours (Table) 02/22/21 02/22/21 02/22/21 Range/Units 07:20 07:20 07:20 RBC 4.17 L (4.30-5.90) m/uL Hgb 12.5 L (13.0-17.5) gm/dL Hct 38.6 L (39.0-53.0) % Carbon Dioxide 33 H (22-30) mmol/L BUN 28 H (9-20) mg/dL Glucose 145 H (74-99) mg/dL POC Glucose (mg/dL) (75-99) mg/dL TSH 5.250 H (0.465-4.680) mIU/L 02/22/21 02/22/21 Range/Units 07:22 11:50 RBC (4.30-5.90) m/uL Hgb (13.0-17.5) gm/dL Hct (39.0-53.0) % Carbon Dioxide (22-30) mmol/L BUN (9-20) mg/dL Glucose (74-99) mg/dL POC Glucose (mg/dL) 137 H 151 H (75-99) mg/dL TSH (0.465-4.680) mIU/L
--- NOTE | 2021-02-22 15:09 | P.EPPROC ---
- EP Procedure Note Electrophysiology Procedure Note: Biventricular ICD interrogation with reprogramming Diagnosis Recurrent fast VT with multiple episodes of antitachycardia pacing and at least 2 ICD shocks Patient is on amiodarone and mexiletine for suppression of fast VT He is a [employer] biventricular ICD that was recently implanted P waves 2.1 mV pacing impedance 380 ohms, pacing threshold 1.4 V at 0.5 ms R waves not present, patient has complete heart block, RV threshold 0.7 V at 0.5 ms pacing impedance of 380 ohms LV pacing impedance 490 ohms, pacing threshold 1 warted 0.5 ms High-voltage impedance 53 ohms VT episodes were interrogated Tachycardia parameters very programmed VT 1 at 164 beats a minute to allow for a slow ventricular tachycardia to be treated appropriately Antitachycardia pacing parameters was reprogrammed Each burst comprising of 15 paced beats All shocks maximized to highest output since patient is on mexiletine and amiodarone and has severe cardio myopathy Pacing mode at DDDR 60 to 1:30 the paced AV delay of 100 ms and LV RV offset of 30 ms
[2021-02-22 17:02] LABS: Glucose,Whole Blood 141 mg/dL (75-99)
[2021-02-22 20:37] LABS: Glucose,Whole Blood 109 mg/dL (75-99)
[2021-02-22] MEDS ORDERED: LOSARTAN 25 MG TAB PO SCH (21:00)
[2021-02-22] MEDS: LINAGLIPTIN 5 MG TABLET PO SCH (21:14)
[2021-02-23 00:32] VITALS: RESP 18
[2021-02-23 05:20] VITALS: PULSE 60
[2021-02-23 06:24] LABS: Glucose,Whole Blood 137 mg/dL (75-99)
[2021-02-23] MEDS: INSULIN DETEMIR (LEVEMIR) 100 UNIT/ML SYR SQ SCH (07:07)
[2021-02-23 08:07] VITALS: BP 122/77; TEMP 97.8
[2021-02-23] MEDS: ASPIRIN 81 MG PO SCH (08:09)
[2021-02-23] MEDS: METOPROLOL TARTRATE 50 MG TAB PO SCH (08:09)
[2021-02-23] MEDS: ATORVASTATIN 80 MG TAB PO SCH (08:09)
[2021-02-23] MEDS: CLOPIDOGREL 75 MG TAB PO SCH (08:09)
[2021-02-23] MEDS: FUROSEMIDE 40 MG TAB PO SCH (08:09)
[2021-02-23] MEDS: ENOXAPARIN 40 MG/0.4 ML SYRINGE SQ SCH (08:09)
[2021-02-23] MEDS: AMIODARONE 200 MG TAB PO SCH (08:09)
[2021-02-23] MEDS: SPIRONOLACTONE 25 MG TAB PO SCH (08:10)
[2021-02-23] MEDS: MEXILETINE 150 MG CAP PO SCH (08:10)
--- NOTE | 2021-02-23 11:07 | P.DS ---
Providers Date of admission: 02/19/21 16:36 Expected date of discharge: 02/23/21 Attending physician: Tyler Muniz Consults: 02/19/21 15:43 Consult Physician Routine Consulting Provider: Yao Lam Consult Reason/Comments: [email or web address] Do you want consulting provider notified?: Already Contacted Primary care physician: Arnie Burks [facility] Course: History of present illness: This is a 65-year-old male patient of Dr. Arnie Burks with a past medical history of hypertension, hyperlipidemia, peripheral vascular disease status post left lower extremity bypass, obstructive sleep apnea status post uvular surgery, diabetes type 2, previous myocardial infarction on 02/01/2021 with implantation of a permanent biventricular AICD for secondary prevention, due to complete heart block and severe ischemic cardiomyopathy with a wide QRS complex. previous EF 20-25%. Patient presented to the emergency room due to his AICD going off 3 times. Patient was seen in the cardiology office previously due to recurrent episodes of ventricular tachycardia with shock and was initiated on amiodarone orally. After arrival to the emergency room patient received a additional shock. He was then placed on amiodarone drip where he continued to have several runs of ventricular tachycardia. Patient was given additional bolus of amiodarone and added lidocaine 50 mg IV push and 1 mg per hour drip. Patient is currently in sinus rhythm or a ventricular paced rhythm. At this time is found resting comfortably sitting up in a chair. He has not had any further episodes of ventricular tachycardia. He denies any chest pain or difficulty breathing. Patient does state that he is unable to sleep lying flat. He continues to have some shortness of breath with activity. 02/21: Patient is found sitting up in the chair. he is ambulatory within the room. Denies any shortness of breath or chest pain with activity. Patient has not had any episodes of V. tach. Lidocaine drip has been DC'd. Currently on amiodarone by mouth. And started on mexitil oral. Patient remains afebrile, pulse rate 70, respirations 27, Blood pressure 121/81, pulse ox 99% on room air. Obesity 8.5, hemoglobin 12.0, potassium 4.4, BUN 27, creatinine 1.24. She'll work to see patient to assist with drug coverage of the new medication. 02/22: school lunch monitor has been a paced rhythm. He has been afebrile, heart rate in the 60s and 70s, blood pressure 127/72, pulse ox 96% on room air. WBC 7.8, hemoglobin 12.5, platelet count 268. Sodium 141, potassium 4.4, chloride 100, CO2 33, BUN 28 creatinine 1.22. Blood sugar 145. Liver function tests were normal. 02/23: Patient states that cardiology has seen in this morning clear him for discharge. He is status post biventricular ICD interrogation with reprogramming. Patient denies having any chest pain, shortness of breath, palpitations, lightheadedness or dizziness. He has been afebrile, heart rate in the 60s, blood pressure 122/77, pulse ox 92% on room air. Blood sugars been running between 113 and 141. Patient will be discharged home today in stable condition. Assessment and plan 1. Ventricular tachycardia status post biventricular ICD interrogation and reprogramming. 2. Ischemic cardiomyopathy with EF of 20-25% status post permanent biventricular AICD. 3. Diabetes mellitus type II, insulin requiring. 4. Hyperlipidemia. 5. Hypertension. 6. History of DVT. 7. Osteoarthritis, stable. Discharge plan Home Impression and plan of care have been directed as dictated by the signing physician. Rachell Lao nurse practitioner acting as scribe for signing physician. Patient Condition at Discharge: Critical Plan - Discharge Summary Discharge Rx Participant: No New Discharge Prescriptions: New Mexiletine [Mexitil] 150 mg PO Q8HR #90 capsule Continue Aspirin 81 mg PO DAILY chew Nitroglycerin Sl Tabs [Nitrostat] 0.4 mg SUBLINGUAL Q5M PRN #25 tab PRN Reason: Chest Pain Acetaminophen Tab [Tylenol] 500 mg PO Q4HR PRN tab PRN Reason: Fever And/ Or Pain Clopidogrel Bisulfate [Plavix] 75 mg PO DAILY Atorvastatin [Lipitor] 80 mg PO HS #30 tab Linagliptin [Tradjenta] 5 mg PO HS Insulin Detemir (Levemir) [Levemir] 30 unit SQ DAILY@0700 Furosemide [Lasix] 40 mg PO BID Changed Spironolactone 25 mg PO DAILY #0 Carvedilol [Coreg] 18.75 mg PO BID #0 Losartan [Cozaar] 12.5 mg PO HS #30 tab Amiodarone HCl [Pacerone] 200 mg PO TID #0 Discharge Medication List Acetaminophen Tab [Tylenol] 500 mg PO Q4HR PRN tab 02/05/21 [Rx] Aspirin 81 mg PO DAILY chew 02/05/21 [Rx] Atorvastatin [Lipitor] 80 mg PO HS #30 tab 02/05/21 [Rx] Nitroglycerin Sl Tabs [Nitrostat] 0.4 mg SUBLINGUAL Q5M PRN #25 tab 02/05/21 [Rx] Clopidogrel Bisulfate [Plavix] 75 mg PO DAILY 02/19/21 [History] Furosemide [Lasix] 40 mg PO BID 02/19/21 [History] Insulin Detemir (Levemir) [Levemir] 30 unit SQ DAILY@0700 02/19/21 [History] Linagliptin [Tradjenta] 5 mg PO HS 02/19/21 [History] Mexiletine [Mexitil] 150 mg PO Q8HR #90 capsule 02/22/21 [Rx] Amiodarone HCl [Pacerone] 200 mg PO TID #0 02/23/21 [Rx] Carvedilol [Coreg] 18.75 mg PO BID #0 02/23/21 [Rx] Losartan [Cozaar] 12.5 mg PO HS #30 tab 02/23/21 [Rx] Spironolactone 25 mg PO DAILY #0 02/23/21 [Rx] Follow up Appointment(s)/Referral(s): Yordan Morrell MD [STAFF PHYSICIAN] - 03/04/21 11:00 am (device clinic at 10:30) Arnie Burks MD [Primary Care Provider] - 1 Week (call office when open to make follow up appointments) Patient Instructions/Handouts: Tachycardia (GEN), Type 2 Diabetes in the Older Adult (DC) Activity/Diet/Wound Care/Special Instructions: Mexitil RX was transferred to [facility] and they are going to apply the GoodRx coupon to this also. Discharge Disposition: HOME SELF-CARE
[2021-02-23 11:46] LABS: Glucose,Whole Blood 113 mg/dL (75-99)
--- NOTE | 2021-02-23 12:46 | P.PN ---
Subjective This is a pleasant 65-year-old male past medical history significant for inferior wall FL s/p mult-vessel PCI, ischemic cardiomyopathy s/p AICD, complete heart block, systolic heart failure, diabetes mellitus, hypertension and dyslipidemia. He follows in the office with Dr. Morrell. He is seen and examined sitting up in recliner in no acute distress. He states he has been short of breath with orthopnea. He denies chest pain, dizziness or palpitations. Blood pressure 127/72 heart rate 67 afebrile and maintaining oxygen saturation on room air. Laboratory data reviewed, WBC 7.8, hgb 12.5, plt 268, sodium 141, potassium 4.4, creatinine 1.22, TSH 5.25. Telemetry tracings reviewed, he has had no further VT in the previous 24 hours. Currently maintained on amiodarone 200 mg TID, aspirin 81 mg daily, atorvastatin 80 mg daily, plavix 75 mg daily, lasix 40 mg BID, losartan 50 mg daily, lopressor 50 mg BID, mexilitine 150 mg BID and aldactone 25 mg daily. 02/23/2021 Pt is seen and examined sitting up in the recliner in no acute distress. He denies chest pain, shortness of breath, dizziness or palpitations. Blood pressure 122/77, heart rate 60 afebriel and maintaining oxygen saturation on room air. Telemetry tracings reviewed, no further episodes of ventricular tachycardia. GENERAL: Well-appearing, well-nourished and in no acute distress. NECK: Supple with bilateral JVD noted, no thyromegaly. LUNGS: Breath sounds clear to auscultation bilaterally. Respiration equal and unlabored. No wheezes, rales or rhonchi. HEART: Regular rate and rhythm without murmurs, rubs or gallops. S1 and S2 heard. EXTREMITIES: Normal range of motion, no edema. No clubbing or cyanosis. Peripheral pulses intact. ASSESSMENT Sustained ventricular tachycardia Ischemic cardiomyopathy Coronary artery disease Hypertension Dyslipdiemia Diabetes mellitus PLAN Change beta mando to 18.75 mg BID. Continue mexilitine 150 mg BID. Taper instructions provided for amiodarone. Stable for discharge from a cardiac perspective. Follow up with Dr. Morrell in 1-2 weeks. Nurse Practitioner note has been reviewed, I agree with a documented findings and plan of care. Patient was seen and examined. Objective - Vital Signs Vital signs: Vital Signs Temp 97.8 F 02/23/21 08:00 Pulse 60 02/23/21 08:00 Resp 18 02/23/21 08:00 BP 122/77 02/23/21 08:00 Pulse Ox 92 L 02/23/21 08:00 Intake & Output 02/22/21 02/23/21 02/23/21 18:59 06:59 18:59 Intake Total 1440 798 Balance 1440 798 Weight 113.2 kg Intake: Oral 1440 798 Other: Voiding Method Toilet Toilet Toilet Urinal Urinal Urinal # Voids 2 1 2 - Labs CBC & Chem 7: 02/22/21 07:20 02/22/21 07:20 Labs: Abnormal Lab Results - Last 24 Hours (Table) 02/22/21 02/22/21 02/23/21 Range/Units 17:01 20:35 06:23 POC Glucose (mg/dL) 141 H 109 H 137 H (75-99) mg/dL 02/23/21 Range/Units 11:45 POC Glucose (mg/dL) 113 H (75-99) mg/dL
[2021-02-23] MEDS ORDERED: MEXILETINE 150 MG CAP PO SCH (16:00)
[2021-02-23] MEDS ORDERED: carvediloL 12.5 MG TAB PO SCH (17:30)
== END 2021-02-23 12:48 | disposition home or self-care (01) | DRG 281 ==
LOC: EC 14:51 → 2SICU 16:36 → 3SCARD 02-21 21:38
PROVIDERS: ADMIT Internal Medicine Geriatric Medicine; ATTEND Internal Medicine Geriatric Medicine
DX: I47.2 Ventricular tachycardia (principal); I21.3 ST elevation (STEMI) myocardial infarction of unspecified site; I50.20 Unspecified systolic (congestive) heart failure; Z20.822 Contact with and (suspected) exposure to COVID-19; I11.0 Hypertensive heart disease with heart failure; I25.10 Atherosclerotic heart disease of native coronary artery without angina pectoris; I25.5 Ischemic cardiomyopathy; I44.2 Atrioventricular block, complete; M19.90 Unspecified osteoarthritis, unspecified site; E11.9 Type 2 diabetes mellitus without complications; E66.9 Obesity, unspecified; E78.5 Hyperlipidemia, unspecified; F12.90 Cannabis use, unspecified, uncomplicated; Z95.810 Presence of automatic (implantable) cardiac defibrillator; Z87.891 Personal history of nicotine dependence; Z86.718 Personal history of other venous thrombosis and embolism; Z83.3 Family history of diabetes mellitus; Z80.42 Family history of malignant neoplasm of prostate; Z79.899 Other long term (current) drug therapy; Z79.82 Long term (current) use of aspirin; Z79.4 Long term (current) use of insulin; Z79.02 Long term (current) use of antithrombotics/antiplatelets
CPT/HCPCS: 36415; 71046; 80048; 80053; 83735; 84439; 84443; 84484; 85025; 85027; 85610; 85730; 87635; 93005; 96374; 99291